=== PATIENT | male | born 1950 | race Caucasian/White ===

== ENCOUNTER 2019-07-18 05:11 | Inpatient (IN) ==
--- NOTE | 2019-05-24 09:49 | Anesthesiology Consultation ---
Date of Service May 24, 2019 Assessment & Plan (1) Encounter for pre-operative examination: Chart Review Chart Review: Acceptable Risk for Surgery (pending preop labs) and Patient NOT seen in Pre Admission Testing History Surgery Operation Date: 07/18/19 09:35 Proposed Procedures p Right Total Hip Arthroplasty - Cody Bolanos MD Height/Weight Height: 6 ft 1 in Weight: 117.934 kg Allergies Allergy/AdvReac Type Severity Reaction Status Date / Time No Known Allergies Allergy Unknown Verified 05/06/19 12:18 Medications Home Medications Medication Instructions Recorded Confirmed Last Taken allopurinol 300 mg PO DAILY 05/06/19 05/24/19 Unknown cholecalciferol (vitamin D3) 1,000 unit PO DAILY 05/06/19 05/24/19 Unknown [Vitamin D3] duloxetine 60 mg PO QAM 05/06/19 05/24/19 Unknown ergocalciferol (vitamin D2) 1,250 mcg PO WK 05/06/19 05/24/19 Unknown [Vitamin D2] hydrochlorothiazide 25 mg PO QAM 05/06/19 05/24/19 Unknown hydroxychloroquine 200 mg PO BID 05/06/19 05/24/19 Unknown lisinopril 15 mg PO QAM 05/06/19 05/24/19 Unknown meloxicam 15 mg PO DAILY 05/06/19 05/24/19 Unknown prednisone 2.5 mg PO DAILY 05/06/19 05/24/19 Unknown tamsulosin 0.4 mg PO HS 05/06/19 05/24/19 Unknown Past Medical History Medical History (Updated 05/24/19 @ 09:51 by Yoana Solitario) BPH (benign prostatic hyperplasia) Chronic back pain Degenerative disc disease History of parvovirus B19 infection ~2009 Hx of pneumothorax ~2004 s/p fall from 2 story home (+ chest tube/no issues since) Hypertension Obesity Osteoarthritis Rheumatoid arthritis chronic prednisone 2.5 mg daily (for the last 8+ years) Dr Holman r/t arthritis, attempted to wean off per patient Spinal stenosis Past Family History Family History Other No family history of adverse response to anesthesia Past Surgical History Surgical History H/O removal of cyst bilateral feet History of back surgery x4 revision back surgeries within r/t post infections History of carpal tunnel release bilateral History of cataract surgery bilateral History of total knee replacement right S/P bunionectomy bilateral S/P epidural steroid injection S/P laminectomy 2014 ([facility]) S/P left inguinal hernia repair S/P right knee arthroscopy Social History Smoking Status: Never smoker tobacco type: smokeless tobacco Hx Alcohol Use: Yes Alcohol type: beer alcohol intake frequency: 3 or more drinks per day Hx Substance Use: No substance use type: does not use Testing Electrocardiogram Date: 05/08/19 SR with occasional PVC's at 88bpm. Minimal voltage criteria for LVH, may be normal variant. Minor NS IVCD. Compared to 01/16/2008, PVC's now present, otherwise no significant change per cardiology. Cervical Spine Date: 05/08/19 Severe disc space narrowing at the C6/C7 and C7-T1 interspaces. Mild to moderate disc space narrowing at C5-C6. Pronounced spondylitic spurring of the lower cervical spine with severe multilevel facet arthrosis. 3 mm anterolisthesis C4 on C5 is unchanged with neutral, flexion and extension. Predental interval is normal. No evidence of instability on this study. No acute fracture or prevertebral soft tissue swelling.
--- NOTE | 2019-07-05 15:03 | History & Physical Report ---
Date of Service July 05, 2019 Assessment & Plan (1) Osteoarthritis of right hip: DIAGNOSIS: Right hip osteoarthritis. PROCEDURE: Right total hip arthroplasty. PLAN: Patient is scheduled to undergo his procedure as an inpatient at the [facility] on July 18, 2019. Risks and complications of the procedure such as infection, bleeding, pain, scarring, nerve and blood vessel damage, weakness, wound problems, stiffness, incomplete relief of symptoms, hardware failure, hardware loosening or a fracture, tendon, or ligament injury, dislocation, leg-length inequality, blood clots, embolism, heart attack, stroke, and were explained to the patient at his visit with Dr. Bolanos on 05/08/19. Informed consent to perform the procedure was obtained to proceed with the surgical intervention. We have obtained preoperative medical clearance from the patient's primary care provider, Dr. Erazo. We will need to obtain an up-to-date preoperative CBC with differential, complete metabolic panel, PT, INR, blood type and screen, urinalysis, urine culture, EKG, hemoglobin A1c, and a nasal culture for MRSA. He states he will obtain this testing at [facility] in [place]. He was also given an order for COVID-19 testing to be done 3 days prior to his surgery, and will need to strictly quarantined until his surgery. Patient states he has a walker at home from his previous knee replacement surgery and will bring with him on the day of surgery. We discussed discharge planning, and patient states he will most likely be discharged home with Home-Health Services. I provided him with material in regard to use of antibiotics after joint replacement surgery. He states that he understands this and has been on antibiotics in the past after his knee replacement. I offered him a handicap placard for his vehicle, but he states he has a permanent one. I instructed him to purchase the hip kit from either [employer] or [employer], he states that he will do so. I provided the patient with material in regard to lectures offered by [facility] in regard to joint replacement surgery. He states he is not sure if he will be able to make to one of those sessions because he lives over an hour [place] half away. I advised the patient that I will prescribe him a narcotic pain medication for postoperative pain control and anti-inflammatory medication after the surgery, and advised him that he will be on Extra Strength Tylenol and aspirin for pain control and DVT prophylaxis respectively. I instructed him to hold his meloxicam and his prednisone for 1 week prior to the procedure. He will be scheduled for his 2- week postoperative followup with myself on July 30. The patient verbalizes understanding of all information provided during today's visit, thanks us for the care he has received, and states if he has questions or concerns that should arise prior to his procedure date, he will contact the clinic accordingly. History of Present Illness Chief Complaint: Right Hip Pain Primary Care Provider: Mary Erazo DO HPI: This 69-year-old male presents to clinic today for his preoperative history and physical. This patient was initially scheduled for this procedure on 05/30/19 but had it cancelled due to COVID-19 pandemic. The patient complains of a 1-2 year history of right-sided hip pain that has become increasingly worse. When I asked where the pain affects him, he points to his groin and buttocks on the right side. Patient has undergone an ultrasound-guided steroid injection without significant relief. The patient states he has seen by Dr. Shea because he thought the pain is originating in his back, but was advised that more than likely the pain was coming from his hip even though he does have significant back issues. The patient would elect to undergo a right total hip arthroplasty at this time due to failed conservative measures. PAST MEDICAL HISTORY: Gout, hypertension, obesity, benign prostatic hypertrophy, depression. PAST SURGICAL HISTORY: Right total knee arthroplasty, lower lumbar spinal fusion, bilateral cataract removal, excision of cystic lesions from bottom of the feet, left inguinal hernia repair. FAMILY HISTORY: Unremarkable. ALLERGIES: Patient has no known drug allergies. CURRENT MEDICATIONS USED: Allopurinol 300 mg oral tablet daily, duloxetine 60 mg oral delayed release capsule daily, hydrochlorothiazide 25 mg oral tablet daily, hydrochloroquine 200 mg oral tablet twice daily, lisinopril 15 mg tablet daily, meloxicam 15 mg tablet daily, multivitamin 1 tab daily, tamsulosin 0.4 mg oral capsule daily, vitamin D3 50,000 international units once a week, and history of vitamin D3 of 1000 international unit capsule daily. SOCIAL HISTORY: Patient denies a history of smoking or illicit drug use. States that he consumes between 10-12 alcoholic beverages per week. Allergies Allergy/AdvReac Type Severity Reaction Status Date / Time No Known Allergies Allergy Unknown Verified 05/06/19 12:18 Home Medications Home Medications Medication Instructions Recorded Confirmed Type allopurinol 300 mg PO DAILY 05/06/19 05/24/19 History cholecalciferol (vitamin D3) 1,000 unit PO DAILY 05/06/19 05/24/19 History [Vitamin D3] duloxetine 60 mg PO QAM 05/06/19 05/24/19 History ergocalciferol (vitamin D2) 1,250 mcg PO WK 05/06/19 05/24/19 History [Vitamin D2] hydrochlorothiazide 25 mg PO QAM 05/06/19 05/24/19 History hydroxychloroquine 200 mg PO BID 05/06/19 05/24/19 History lisinopril 15 mg PO QAM 05/06/19 05/24/19 History meloxicam 15 mg PO DAILY 05/06/19 05/24/19 History prednisone 2.5 mg PO DAILY 05/06/19 05/24/19 History tamsulosin 0.4 mg PO HS 05/06/19 05/24/19 History Past Med/Surg History Medical History BPH (benign prostatic hyperplasia) Chronic back pain Degenerative disc disease History of parvovirus B19 infection ~2009 Hx of pneumothorax ~2004 s/p fall from 2 story home (+ chest tube/no issues since) Hypertension Obesity Osteoarthritis Rheumatoid arthritis chronic prednisone 2.5 mg daily (for the last 8+ years) Dr Holman r/t arthritis, attempted to wean off per patient Spinal stenosis Surgical History H/O removal of cyst bilateral feet History of back surgery x4 revision back surgeries within 2014/2015 r/t post infections History of carpal tunnel release bilateral History of cataract surgery bilateral History of total knee replacement right S/P bunionectomy bilateral S/P epidural steroid injection S/P laminectomy 2014 ([facility]) S/P left inguinal hernia repair S/P right knee arthroscopy Family History Other No family history of adverse response to anesthesia Social History Preferred Language: Estonian Communication Ability: Effective 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 No open skin lesions or discharge. Eyes: Pupils are equal and reactive to light and accommodating. Extraocular movements are intact. Throat: Posterior pharynx clear with absence of edema, erythema, or exudate. Cardiovascular: The patient has regular rate and rhythm with no murmurs or gallops appreciated. Lungs: Auscultation of lung crisostomo reveals clear breath sounds throughout with no edema, rales, or rhonchi. Abdomen is obese, nondistended, nontender with normoactive bowel sounds. Extremities: Right hip, the patient has a positive logroll test and a positive Stinchfield test. Flexion is limited to 110 degrees, external rotation to 40 degrees, internal rotation to 0 degrees. Patient experiences referred groin pain in all these positions. The patient's quad strength is 5/5. His calf is soft and supple, nontender to palpation. He is neurovascularly intact in the right lower extremity. Neurological: Cranial nerves 2-12 are intact with no motor or sensory deficit. Psychological/General: The patient is alert and oriented x3 with proper grooming and hygiene.
--- NOTE | 2019-07-16 10:26 | Communication Note ---
Date of Service: July 16, 2019 Travel assessment/history reviewed - low risk at this time - will be reviewed the morning of surgery. Routine preop covid testing ordered. No resulted at this time.
[2019-07-18] MEDS ORDERED: SCOPOLAMINE 1.5 MG TDSY TD SCH (06:00)
[2019-07-18] MEDS ORDERED: ACETAMINOPHEN 500 MG TAB PO SCH (06:00)
[2019-07-18] MEDS ORDERED: TRANEXAMIC ACID 1,000 MG **IV Intra-op IV SCH (06:00)
[2019-07-18] MEDS ORDERED: dexAMETHasone 4 MG TAB PO SCH (06:00)
[2019-07-18] MEDS ORDERED: TRAMADOL HCL 50 MG TABLET PO SCH (06:00)
[2019-07-18] MEDS ORDERED: LR 60ML/HR IV SCH (06:00)
[2019-07-18] MEDS ORDERED: CeleBREX 200 MG CAP PO SCH (06:00)
[2019-07-18] MEDS ORDERED: METOCLOPRAMIDE HCL 10 MG TABLET PO SCH (06:00)
[2019-07-18] MEDS ORDERED: TRANEXAMIC ACID 1,000 MG **IV Pre-op IV SCH (06:00)
[2019-07-18] MEDS ORDERED: FAMOTIDINE 20 MG TAB PO SCH (06:00)
[2019-07-18] MEDS ORDERED: LR 500ML BOLUS, THEN 15ML/HR IV SCH (06:00)
[2019-07-18] MEDS ORDERED: ROPIVACAINE 0.5% HCL/PF 150 MG, BUPIVACAINE 0.5% MPF 30 ML, EPINEPHrine 0.15 MG, Ketoro... INFIL SCH (06:00)
[2019-07-18] MEDS ORDERED: CEFAZOLIN 3000MG 72.5 ML IV SCH (06:00)
[2019-07-18] MEDS ORDERED: BUPIVACAINE 0.5 % 5 MG/1 ML PF 10ML VIAL ONE (06:28)
[2019-07-18] MEDS ORDERED: ORTHO JOINT ANESTHETIC ONE (06:33)
--- NOTE | 2019-07-18 06:37 | History & Physical Bridge Note ---
Date of Service July 18, 2019 History & Physical Bridge Note I have examined the patient, reviewed the History & Physical and in the interval since the performance of the History & Physical I have noted the following changes of clinical significance: no changes noted
[2019-07-18] MEDS ORDERED: MIDAZOLAM HCL 1 MG/ML 2ML VIAL ONE (06:43)
[2019-07-18] MEDS ORDERED: fentaNYL citrate 100 MCG/2 ML VIAL ONE (06:43)
[2019-07-18] MEDS ORDERED: ePHEDrine sulfate 50 MG/ML AMP IV PRN (07:13)
[2019-07-18] MEDS ORDERED: ATROPINE SULFATE 0.1 MG/ML 10ML SYR IV PRN (07:13)
[2019-07-18] MEDS ORDERED: fentaNYL citrate 100 MCG/2 ML VIAL IV PRN (07:13)
[2019-07-18] MEDS ORDERED: ONDANSETRON INJ 2 MG/ML 2 ML VIAL IV PRN ×2 (07:13→08:56)
[2019-07-18] MEDS ORDERED: PROPOFOL IV EMULSION 10 MG/ML 20 ML VIAL IV ONE (07:29)
[2019-07-18] MEDS ORDERED: LIDOCAINE HCL 2% 2 ML VIAL/AMP(20MG/ML) INFIL ONE (07:29)
[2019-07-18] MEDS ORDERED: PHENYLEPHRINE 100MCG/ML 5ML SYR ONE (07:42)
[2019-07-18] MEDS ORDERED: ePHEDrine sulfate 50 MG/ML SYR ONE (07:42)
[2019-07-18] MEDS ORDERED: ONDANSETRON INJ 2 MG/ML 2 ML VIAL ONE (07:42)
[2019-07-18] MEDS ORDERED: VASOPRESSIN 20 UNIT/ML VIAL ONE (07:57)
--- NOTE | 2019-07-18 08:54 | Operative Report ---
Post Operative Report Pre & Post Diagnosis Operation Date: 07/18/19 07:00 Pre-Op Diagnosis: Right Hip Osteoarthritis Post-Op Diagnosis: Right Hip Osteoarthritis I identified the patient and participated in the time-out.: Yes Procedure Operation Date: 07/18/19 07:00 Actual Procedures p Right Total Hip Arthroplasty(Right) - Cody Bolanos MD Surgeon Cody Bolanos MD Cosmetic Dentist THOMPSON Andre PA-C Estimated Blood Loss 100 Findings Consistent with Post-Op Diagnosis Specimens Femoral head Anesthesia Type Spinal MAC Complications none Disposition Accompanied Patient To Recovery: No Disposition: Recovery Room Indications 69-year-old male with 2-year history of right hip pain refractory to conservative management. X-rays demonstrate end-stage osteoarthritis with complete joint space loss subchondral sclerosis and peripheral osteophyte formation. I had a long discussion with him about the risks and benefits of surgery alternatives to surgery and expected outcomes. After reviewing all these elected to proceed with surgery. All questions were answered. Informed consent was signed Description of Procedure Patient was identified in the preoperative holding area his surgical site was marked. He was given a spinal by anesthesia then brought back to the main operating room where he was placed in the operating table and moved in the lateral decubitus position. Axillary roll was placed. All bony prominences were padded. Perioperative antibiotics and tranexamic acid were administered. He was prepped and draped in the normal sterile fashion. Prior to incision a multidisciplinary timeout was called. All in the room in agreement. We began by making an incision for a posterior approach to the hip. We dissected down through subcutaneous tissues to the level of the fascia. The fascia was incised in line with the incision. Charnley bow was placed. The trochanteric bursa was excised. The piriformis and short external rotators were dissected off the posterior aspect of the hip. A box cut was made in the capsule. The femoral head was dislocated. The femoral neck cut was made at our preoperative template. The acetabulum was then exposed. Contents of the cotyloid fossa were removed with electrocautery. The labrum was sharply excised. We then began reaming at a size 8 mm less than her preoperative template. We reamed him all the way up to a size 58 mm cup. This gave us good bleeding cancellus bone circumferentially. The acetabulum was then irrigated out. The real pinnacle conduit worker herzog cup was then impacted down into position with 45 degrees of lateral opening and 25 degrees of anteversion. A single cancellus bone screw was placed up into the ilium. Excellent fixation was obtained. An Ultrex polyethylene liner for a 36 mm femoral head was then impacted into the shell. The locking mechanism was checked to ensure that it had engaged which it had. Next we turned our attention to the femur. The lateral neck was removed with a box osteotome. Intramedullary guide was used followed by the lateralizing reamer. We then reamed up to a size 7 [place] stem. We broached him all the way up to a size 7. We began trialing with a high offset neck and a +1.5 head. Hip was reduced. His leg lengths were symmetric. He was stable in extension and external rotation. Stable in the sleeper position. At 90 degrees of hip flexion he could be internally rotated 45 degrees before leaving out of the cup. I was very happy with the stability exam. Therefore the hip was dislocated and the femoral trial was removed. The femoral canal was irrigated and dried. The real size 7 high offset [place] femoral stem was opened up. This was impacted down into position. It sat at the same level as the femoral trial. Therefore the 36 mm ceramic femoral head with a +1.5 mm offset was opened up and gently impacted down onto the trunnion. The hip was atraumatically reduced. The wound was then irrigated out with sterile Betadine solution. The periarticular injection cocktail was then placed. The short external rotators piriformis and posterior capsule repaired through drill holes in the greater trochanter using #2 Vicryl. The fascia was run with a looped #1 PDS. The subcutaneous layer was closed with #1 PDS. The dermal layer was closed with 2-0 Vicryl. Zip line was used for the skin followed by a Silverlon dressing. A compressive dressing was then placed. The patient was then rolled supine. Leg lengths were rechecked and were symmetric. An abduction pillow was placed. Sedation was lifted and the patient was transferred to recovery room in stable condition. Postoperative course: Patient will be admitted to the hospital from the recovery room. Patient will be weightbearing as tolerated with posterior hip precautions. Aspirin for DVT prophylaxis. I attest to the content of the Intraoperative Record and any orders documented therein. Any exceptions are noted below.
--- NOTE | 2019-07-18 08:55 | Operative Report ---
Post Operative Report Pre & Post Diagnosis Operation Date: 07/18/19 07:00 Pre-Op Diagnosis: Right Hip Osteoarthritis Post-Op Diagnosis: Right Hip Osteoarthritis I identified the patient and participated in the time-out.: Yes Procedure Operation Date: 07/18/19 07:00 Actual Procedures p Right Total Hip Arthroplasty(Right) - Cody Bolanos MD Surgeon Cody Bolanos MD Rat Trapper THOMPSON Andre PA-C Estimated Blood Loss 100 Findings Consistent with Post-Op Diagnosis Specimens Right femoral head Complications none Disposition Accompanied Patient To Recovery: Yes Disposition: Recovery Room Description of Procedure I was present during the entire case assisting with retraction, wound closure and dressing application. Please see Dr. Bolanos procedure note for specifics of the case. I attest to the content of the Intraoperative Record and any orders documented therein. Any exceptions are noted below.
[2019-07-18] MEDS ORDERED: NALOXONE HCL 0.4 MG/1 ML VIAL/CARP IV PRN (08:56)
[2019-07-18] MEDS ORDERED: ALUMINUM/MAGNESIUM SUSP 30 ML UDC PO PRN (08:56)
[2019-07-18] MEDS ORDERED: OXYCODONE HCL IR 5 MG TAB (IMMEDIATE RELEASE) PO PRN (08:56)
[2019-07-18] MEDS ORDERED: MAGNESIUM HYDROXIDE SUSP 30 ML UDC PO PRN (08:56)
[2019-07-18] MEDS ORDERED: METOCLOPRAMIDE HCL INJ 5 MG/ML 2 ML VIAL IV PRN (08:56)
[2019-07-18] MEDS ORDERED: bisacodyL 10 MG SUPP PR PRN (08:56)
[2019-07-18] MEDS ORDERED: TAMSULOSIN HCL 0.4 MG CAP PO PRN (08:56)
[2019-07-18] MEDS ORDERED: DiphenhydrAMINE HCL 50 MG/ML VIAL IV PRN (08:56)
--- NOTE | 2019-07-18 09:50 | XRay Report ---
XR hip 1V RT w pelvis CLINICAL HISTORY: 69 years-old Male presenting with IN PACU - A/P PELVIS and LATERAL HIP . TECHNIQUE: Single frontal view of the pelvis and lateral view the right hip were obtained. COMPARISON: Plain radiograph of the pelvis from 05/08/2019. FINDINGS: There has been interval total right hip arthroplasty. No malalignment. No periprostatic fracture or l ucency. Incomplete visualization of the pelvis with exclusion of the iliac crests and sacrum. Visuali zed portion of the pelvis intact. Left hip joint congruent. Mild to moderate degenerative change of t he left hip may be present. Soft tissue emphysema noted in the region of the right hip related to rec ent surgery. IMPRESSION: Expected postsurgical findings status post total right hip arthroplasty. ACT 112: Negative or not required by law. Electronically signed by: Cody Love M.D. 07/18/2019 9:49 AM
--- NOTE | 2019-07-18 11:01 | Anesthesiology Progress Note ---
Date of Service July 18, 2019 Anesthesia Post Procedure Vital Signs Vital Signs: Temp Pulse Resp BP Pulse Ox 07/18/19 10:15 70 12 112/72 97 07/18/19 10:00 36.5 C 82 15 117/74 97 07/18/19 09:50 68 12 122/67 97 07/18/19 09:40 82 15 110/72 96 07/18/19 09:30 77 12 118/62 96 07/18/19 09:20 67 12 112/60 98 07/18/19 09:10 72 14 96/56 L 96 07/18/19 09:00 70 12 96/54 L 98 07/18/19 08:53 36.1 C L 77 16 96/51 L 94 07/18/19 05:54 37 C 94 H 20 139/97 95 Pain Intensity Right Hip: Pain Intensity: 6 Transfer of Care Handoff Completed per policy Notes Mental Status: alert / awake / arousable and participated in evaluation Nausea / Vomiting: adequately controlled Pain: adequately controlled Airway Patency, RR, SpO2: stable & adequate BP & HR: stable & adequate Hydration State: stable & adequate Neuraxial Anesthesia: was administered and sensory block is resolving Anesthetic Complications: no major complications apparent and Pt Satisfied with anesthetic care
[2019-07-18] MEDS: hydroCHLOROthiazide 25 MG TAB PO SCH (11:08)
[2019-07-18] MEDS: DULOXETINE HCL 60 MG CAP PO SCH (11:08)
[2019-07-18] MEDS: ASPIRIN 81 MG ECTAB PO SCH ×2 (11:08→21:10)
[2019-07-18] MEDS: SODIUM CHLORIDE 0.9% 1000ML 1,000 ML IV SCH ×2 (11:08→19:50)
[2019-07-18] MEDS: MULTIVITAMIN TAB PO SCH (11:08)
[2019-07-18] MEDS: allopurinoL 300 MG TAB PO SCH (11:09)
[2019-07-18] MEDS: CHOLECALCIFEROL 1,000 UNITS 25 MCG TAB PO SCH (11:09)
[2019-07-18] MEDS: lisinopriL 5 MG TAB PO SCH (11:09)
[2019-07-18] MEDS: KETOROLAC TROMETHAMINE 15 MG/ML VIAL IV SCH ×3 (11:31→23:41)
[2019-07-18] MEDS: ACETAMINOPHEN 500 MG TAB PO SCH ×2 (13:34→21:11)
[2019-07-18] MEDS: CEFAZOLIN 2000MG 2,000 MG/15 ML SYR IV SCH ×2 (14:24→21:11)
[2019-07-18] MEDS ORDERED: TRANEXAMIC ACID / 0.7% NACL 1,000 MG/100 ML BAG IV SCH (15:30)
[2019-07-18] MEDS: CHECK SCOPOLAMINE PATCH PLACEMENT SCH ×2 (15:33→23:41)
[2019-07-18] MEDS ORDERED: TAMSULOSIN HCL 0.4 MG CAP PO SCH (21:00)
[2019-07-18] MEDS ORDERED: SENNA 8.6 MG TAB PO SCH (21:00)
[2019-07-18] MEDS: HYDROXYCHLOROQUINE SULFATE 200 MG TAB PO SCH (21:10)
[2019-07-18] MEDS: DOCUSATE SODIUM 100 MG CAP PO SCH (21:10)
[2019-07-19] MEDS: ACETAMINOPHEN 500 MG TAB PO SCH ×2 (05:35→12:37)
[2019-07-19] MEDS: KETOROLAC TROMETHAMINE 15 MG/ML VIAL IV SCH (05:35)
[2019-07-19] MEDS: SODIUM CHLORIDE 0.9% 1000ML 1,000 ML IV SCH (05:44)
[2019-07-19 07:18] LABS: Basophils # (auto) 0.01 K/uL (0-0.2); Basophils % (auto) 0.2 %; Eosinophils # (auto) 0.01 K/uL (0-0.5); Eosinophils % (auto) 0.2 %; Hematocrit (blood only) 36.5 % (42-52); Hemoglobin 12.6 g/dL (14.0-18.0); Immature Granulocytes # (auto) 0.01 K/uL (0.00-0.02); Immature Granulocytes % (auto) 0.2 %; Lymphocytes # (auto) 0.93 K/uL (1.2-3.4); Lymphocytes % (auto) 14.9 %; Mean Corpuscular Hemoglobin 31.9 pg (25-34); Mean Corpuscular Hgb Conc 34.5 g/dL (32-36); Mean Corpuscular Volume 92.4 fL (80-100); Mean Platelet Volume 9.5 fL (7.4-10.4); Monocytes # (auto) 0.65 K/uL (0.11-0.59); Monocytes % (auto) 10.4 %; Neutrophils # (auto) 4.64 K/uL (1.4-6.5); Neutrophils % (auto) 74.1 %; Platelet Count 163 K/uL (130-400); RDW Coefficient of Variation 11.9 % (11.5-14.5); RDW Standard Deviation 40.6 fL (36.4-46.3); Red Blood Count 3.95 M/uL (4.7-6.1); White Blood Count 6.25 K/uL (4.8-10.8)
[2019-07-19 07:46] LABS: BUN Creatinine Ratio 13.9 (10-20); Calcium 8.9 mg/dl (8.5-10.1); Creatinine Clr Calc Pharmacy 105.5 ml/min; Est GFR (African American) 100.2; Est GFR (Non-African American) 86.4; Potassium 3.9 mmol/L (3.5-5.1)
[2019-07-19] MEDS ORDERED: dexAMETHasone 4 MG TAB PO SCH (08:00)
--- NOTE | 2019-07-19 08:22 | Anesthesiology Progress Note ---
Date of Service July 19, 2019 Anesthesia Post Procedure Vital Signs Vital Signs: Temp Pulse Pulse Resp BP BP Pulse Ox 07/19/19 07:46 36.7 C 77 18 151/75 H 97 07/19/19 02:54 36.5 C 61 16 147/83 H 96 07/18/19 23:39 36.8 C 63 18 154/80 H 97 07/18/19 20:41 36.8 C 80 18 127/75 96 07/18/19 15:59 36.9 C 75 17 124/72 95 07/18/19 13:35 36.9 C 92 H 18 129/78 94 07/18/19 12:51 92 H 18 149/88 H 94 07/18/19 11:45 37.0 C 86 18 124/72 98 07/18/19 11:18 84 18 132/78 98 07/18/19 10:45 37.0 C 84 16 116/67 95 07/18/19 10:15 70 12 112/72 97 07/18/19 10:00 36.5 C 82 15 117/74 97 07/18/19 09:50 68 12 122/67 97 07/18/19 09:40 82 15 110/72 96 07/18/19 09:30 77 12 118/62 96 07/18/19 09:20 67 12 112/60 98 07/18/19 09:10 72 14 96/56 L 96 07/18/19 09:00 70 12 96/54 L 98 07/18/19 08:53 36.1 C L 77 16 96/51 L 94 Pain Intensity Right Hip: Pain Intensity: 3 Notes Mental Status: alert / awake / arousable and participated in evaluation Nausea / Vomiting: adequately controlled Pain: adequately controlled Airway Patency, RR, SpO2: stable & adequate BP & HR: stable & adequate Hydration State: stable & adequate Neuraxial Anesthesia: was administered
[2019-07-19] MEDS: DOCUSATE SODIUM 100 MG CAP PO SCH (10:54)
[2019-07-19] MEDS: ASPIRIN 81 MG ECTAB PO SCH (10:55)
[2019-07-19] MEDS: DULOXETINE HCL 60 MG CAP PO SCH (10:55)
[2019-07-19] MEDS: MULTIVITAMIN TAB PO SCH (10:56)
[2019-07-19] MEDS: HYDROXYCHLOROQUINE SULFATE 200 MG TAB PO SCH (10:56)
[2019-07-19] MEDS: hydroCHLOROthiazide 25 MG TAB PO SCH (10:56)
[2019-07-19] MEDS: lisinopriL 5 MG TAB PO SCH (10:57)
[2019-07-19] MEDS: CHOLECALCIFEROL 1,000 UNITS 25 MCG TAB PO SCH (10:57)
[2019-07-19] MEDS: allopurinoL 300 MG TAB PO SCH (10:58)
--- NOTE | 2019-07-19 11:14 | Orthopedic Progress Note ---
Date of Service July 19, 2019 Assessment & Plan (1) History of total right hip arthroplasty: Total hip precautions PT/OT WBAT with walker assistance Keep dressing in place Ice with EZ wrap DVT prophy with TEDs and Aspirin Pain control with PO meds Discharge after lunch today with in home health services Follow up at [facility] in 2 wks as previously scheduled For questions call Admission and Anticipated Discharge Date Admission Date: July 18, 2019 Subjective This 69 yo M is day s/p Right Total Hip Arthroplasty. Patient states that he is doing very well. He was sitting on bedside chair talking with OT during evaluation. He states that he has been able to ambulate around the halls without pain or difficult with walker assistance. Currently he denies CP, SOB, nausea, vomiting, fever, chills, sweats or lethargy. Review of Systems Review of Systems: All systems reviewed & are unremarkable except as noted in Subjective Physical Exam Physical Exam: Right Hip: Dressing clean, dry and intact. Able to actively perform SLRT and dorsi/plantar flex foot. No pain with light passive internal/external rotation. Neg log roll. Calf soft and supple. No TTP over incision site. NV intact in Rt LE. Periph pulses easily palpable. Cap refill < 2 seconds. Knee ROM 0-90. Results & Data ([facility]) Vital Signs (Past 12 Hours) Vital Signs Temp Pulse Resp BP Pulse Ox 07/19/19 07:46 36.7 C 77 18 151/75 H 97 07/19/19 02:54 36.5 C 61 16 147/83 H 96 07/18/19 23:39 36.8 C 63 18 154/80 H 97 Laboratory Results 07/19/19 07/19/19 07/19/19 Range/Units 06:59 06:59 06:59 WBC 6.25 (4.8-10.8) K/uL RBC 3.95 L (4.7-6.1) M/uL Hgb 12.6 L (14.0-18.0) g/dL Hct 36.5 L (42-52) % MCV 92.4 (80-100) fL MCH 31.9 (25-34) pg MCHC 34.5 (32-36) g/dL RDW Std Deviation 40.6 (36.4-46.3) fL RDW Coeff of [place] 11.9 (11.5-14.5) % Plt Count 163 (130-400) K/uL MPV 9.5 (7.4-10.4) fL Immature Gran % (Auto) 0.2 % Neut % (Auto) 74.1 % Lymph % (Auto) 14.9 % [place] % (Auto) 10.4 % Eos % (Auto) 0.2 % Baso % (Auto) 0.2 % Immature Gran # (Auto) 0.01 (0.00-0.02) K/uL Neut # (Auto) 4.64 (1.4-6.5) K/uL Lymph # (Auto) 0.93 L (1.2-3.4) K/uL [place] # (Auto) 0.65 H (0.11-0.59) K/uL Eos # (Auto) 0.01 (0-0.5) K/uL Baso # (Auto) 0.01 (0-0.2) K/uL Sodium 136 (136-145) mmol/L Potassium 3.9 (3.5-5.1) mmol/L Chloride 102 (98-107) mmol/L Carbon Dioxide 27 (21-32) mmol/L Anion Gap 7.0 (3-11) BUN 12 (7-18) mg/dl Creatinine 0.88 (0.6-1.4) mg/dl Est Cr Clr Drug Dosing 105.5 ml/min Est GFR ( Amer) 100.2 Est GFR (Non-Af Amer) 86.4 BUN/Creatinine Ratio 13.9 (10-20) Glucose 112 H (70-99) mg/dl Calcium 8.9 (8.5-10.1) mg/dl Hepatitis C Ab Screen Neg (Neg)
--- NOTE | 2019-07-19 11:14 | Discharge Summary ---
Date of Service July 19, 2019 Admission HPI Per Admitting Provider HPI: This 69-year-old male presents to clinic today for his preoperative history and physical. This patient was initially scheduled for this procedure on 05/30/19 but had it cancelled due to COVID-19 pandemic. The patient complains of a 1-2 year history of right-sided hip pain that has become increasingly worse. When I asked where the pain affects him, he points to his groin and buttocks on the right side. Patient has undergone an ultrasound-guided steroid injection without significant relief. The patient states he has seen by Dr. Shea because he thought the pain is originating in his back, but was advised t hat more than likely the pain was coming from his hip even though he does have significant back issues. The patient would elect to undergo a right total hip arthroplasty at this time due to failed conservative measures. PAST MEDICAL HISTORY: Gout, hypertension, obesity, benign prostatic hypertrophy, depression. PAST SURGICAL HISTORY: Right total knee arthroplasty, lower lumbar spinal fusion, bilateral cataract removal, excision of cystic lesions from bottom of the feet, left inguinal hernia repair. FAMILY HISTORY: Unremarkable. ALLERGIES: Patient has no known drug allergies. CURRENT MEDICATIONS USED: Allopurinol 300 mg oral tablet daily, duloxetine 60 mg oral delayed release capsule daily, hydrochlorothiazide 25 mg oral tablet daily, hydrochloroquine 200 mg oral tablet twice daily, lisinopril 15 mg tablet daily, meloxicam 15 mg tablet daily, multivitamin 1 tab daily, tamsulosin 0.4 mg oral capsule daily, vitamin D3 50,000 international units once a week, and history of vitamin D3 of 1000 international unit capsule daily. SOCIAL HISTORY: Patient denies a history of smoking or illicit drug use. States that he consumes between 10-12 alcoholic beverages per week. Admission Exam Per Admitting Provider PHYSICAL EXAMINATION: Skin: Patient's skin is normal in appearance. No open skin lesions or discharge. Eyes: Pupils are equal and reactive to light and accommodating. Extraocular movements are intact. Throat: Posterior pharynx clear with absence of edema, erythema, or exudate. Cardiovascular: The patient has regular rate and rhythm with no murmurs or gallops appreciated. Lungs: Auscultation of lung crisostomo reveals clear breath sounds throughout with no edema, rales, or rhonchi. Abdomen is obese, nondistended, nontender with normoactive bowel sounds. Extremities: Right hip, the patient has a positive logroll test and a positive Stinchfield test. Flexion is limited to 110 degrees, external rotation to 40 degrees, internal rotation to 0 degrees. Patient experiences referred groin pain in all these positions. The patient's quad strength is 5/5. His calf is soft and supple, nontender to palpation. He is neurovascularly intact in the right lower extremity. Neurological: Cranial nerves 2-12 are intact with no motor or sensory deficit. Psychological/General: The patient is alert and oriented x3 with proper grooming and hygiene. Principal Diagnosis Right hip osteoarthritis Discharge Exam Right Hip: Dressing clean, dry and intact. Able to actively perform SLRT and dorsi/plantar flex foot. No pain with light passive internal/external rotation. Neg log roll. Calf soft and supple. No TTP over incision site. NV intact in Rt LE. Periph pulses easily palpable. Cap refill < 2 seconds. Knee ROM 0-90. Discharge Data Allergies Allergy/AdvReac Type Severity Reaction Status Date / Time No Known Allergies Allergy Unknown Verified 07/18/19 05:46 Consultations 07/19/19 08:00 Consult Case Management - Discharge Planning Routine Procedures Performed Operation Date: 07/18/19 07:00 Actual Procedures p Right Total Hip Arthroplasty(Right) - Cody Bolanos MD Hospital Course (1) History of total right hip arthroplasty: Patient did very well overnight. Initially he considered discharge to a rehab facility but after doing PT and OT this AM, feels that he will be able to be discharged home with home health services. Total hip precautions PT/OT WBAT with walker assistance Keep dressing in place Ice with EZ wrap DVT prophy with TEDs and Aspirin Pain control with PO meds Discharge after lunch today with in home health services Follow up at [facility] in 2 wks as previously scheduled For questions call Total Time Total Time Spent Total Time Spent (In Minutes): 15 mins Total Time Includes: Examination of the Patient, Discharge Planning and Medication Reconciliation Discharge Plan Discharge Items Patient Disposition: Home - Home Health Services Reason For Visit: Right Hip Osteoarthritis Discharge Diagnosis: Right hip osteoarthritis Activity: As commented below Lifting: None Bathing: Keep incision dry Bathing Comment: May shower tomorrow Sexual Activity: Wait until after follow-up appointment Exercise/Sports: Wait until after follow-up appointment Driving/Machine Use: No driving until cleared by management specialist Weightbearing: Right weightbearing Weightbearing Comment: as tolerated with walker assistance Non-emergency contact: Primary Care Provider Call non-emergency contact if: you have any medication questions, your pain is not controlled, your temperature is above 101.5, your wound has increased drainage and your wound pain has increased Follow-up/Referrals: Mary Erazo DO [Primary Care Provider] - Diet: Regular Addtl Attending Provider Instructions: Post-operative Instructions Dear Patient and Family/Friends, Before you are discharged from the hospital, it is important to know what to expect when you get home after surgery. To that end, we have created this sheet of discharge instructions which covers many commonly asked questions. Make sure you go through this sheet in its entirety with your nurse before you are discharged. Please note that we will go over the specifics of your surgery and recovery when you return for your first post-operative visit. Sincerely, Dr. Bolanos Medications 1. Oxycodone 5 mg: take 1-2 tabs by mouth every 4-6 hours as needed for pain relief. A prescription for 30 tabs of this medication will be sent to your pharmacy. 2. Diclofenac Sodium 75 mg: take 1 tab twice daily for 30 days post operatively for pain and inflammation relief. A prescription for this with 1 refill will be sent to your pharmacy. Do not take Meloxicam while using this medication. 3. Aspirin 81 mg: Take 1 tab twice daily for 30 days post operative for blood clot prevention. Please purchase this medication. 4. Extra Strength Tylenol 500mg: take 2 tabs every 6-8 hours as needed for pain relief. Please purchase. Pain Expect to be in a fair amount of pain after surgery. Remember, our goal is not to eliminate your pain, but to make it tolerable. It is a good idea to stay ahead of your pain by taking the medications you were prescribed once you get home. Typically, the pain starts improving 3-7 days after surgery. You should start weaning off the narcotic pain medication (oxycodone, hydrocodone, hydromorphone, morphine) as soon as your pain improves. Please call our office if your pain is not adequately controlled. Ice Ice your operative site at least 5 times a day for 15-30 minutes at a time. Make sure you have a thin cloth between the ice or cooling unit and your skin to prevent hammer bite. This is especially important if you received a nerve block. Continue icing your operative site for the first 5-7 days after surgery, then as needed. Diet/Nausea/Vomiting Start by drinking clear liquids and eating crackers. If you can tolerate this, then you may resume your normal diet. If you feel nauseated or vomit, take Zofran/ondansetron (if prescribed). Please call our office if you have intractable nausea or vomiting, or, if after hours, you may go to the Emergency Room for help. Constipation Constipation is a common side effect of narcotic pain medication. If you have not had a bowel movement within 2 days after surgery, we recommend purchasing an over the counter laxative such as Milk of Magnesia, Dulcolax, or Miralax from a local pharmacy, and taking it as instructed. Call our clinic if any questions. Nerve block The anesthesia team sometimes places a nerve block to help with post-operative pain control. This results in significant numbness and inability to move the extremity. The nerve block usually wears off in 8-12 hours, but sometimes can last up to 24 hours. Please call our office if you are still unable to move your extremity after 24 hours, unless you received a pain pump to take home. Nerve blocks typically wear off quickly, so start taking pain medication as soon as you start feeling soreness near your surgical site. Weight bearing and Range of Motion. Do not bear any weight through your operative extremity immediately after surgery. If you had upper extremity surgery, do not lift anything with that arm. If you are in a knee brace, keep it locked in place until your follow-up. We will discuss your weight bearing, range of motion, and lifting restrictions in detail at your first post-operative appointment. Continuous Passive Motion (CPM) Machine If you were prescribed a CPM machine, it will start after your first post- operative appointment, at which time we will give you instructions on the range of motion settings and duration of treatment Physical therapy You will be given a prescription for physical therapy or occupational therapy at your first post-operative appointment. Typically, patients start therapy within 1 week of surgery Wound care and showering We will inspect your wound at your first post-operative visit, and may do a dressing change at that time. Most patients will be in a water-proof dressing that is removed 14 days after surgery. It is normal to see some dried blood on the dressing. Do not remove your dressing, paper strips or sutures yourself unless you are given permission. Showering is allowed the day after surgery. Do not scrub or remove any dressings. The wound should not be submerged underwater (i.e. in a bathtub or pool) until 4 weeks after surgery CHARLY stockings If you were given white stockings, these are to be worn at all times except to shower (on both legs) for the first 2 weeks after surgery. Driving You may not drive while taking narcotic pain medication or while in a cast, splint, sling or brace. You, the patient, need to make the final determination about when you are safe to drive, however, the earliest you may consider driving after surgery is below: Hand/Wrist/Elbow Surgery: 3 days Shoulder Surgery: 2 weeks Hip,/Knee/Ankle Surgery: 4 weeks Fracture repair: 6 weeks Return to Work Your return to work depends on what surgery was done and what type of work you do. Please bring any paperwork your employer needs completed to your first post-operative visit. Also, bring a description of your job duties, as this helps us to understand what risks you may face at work. Travel Avoid long distance travel (greater than 1 hour) in airplanes and cars for the first 6 weeks after surgery. If you must travel, you need to have a Doppler ultrasound done before you travel to rule out a blood clot in your legs. Follow-up You should have a follow-up appointment already scheduled 1-2 days after surgery. If not, please contact our office to make this appointment before you leave the hospital. When to call the office It is normal to have swelling and bruising in the limb that was operated on. This will improve with time. It is also normal to have fevers for the first 2 days after surgery. Reasons you should call your doctor include: Uncontrolled pain; Nausea, vomiting, or constipation that does not improve with medication; Fevers over 101.5, chills, sweats; Drainage or bleeding from the wound; Foul odor; Spreading areas of redness; Any other concerns Pending Studies at Discharge: No Stand-Alone Forms: My [facility] Medications and DC Order Prescriptions: New oxycodone 5 mg tablet 5 mg PO Q6H Qty: 30 RF: 0 diclofenac sodium 75 mg tablet,delayed release (DR/EC) 75 mg PO BID 30 Days Qty: 60 RF: 1 Continued tamsulosin 0.4 mg Capsule 0.4 mg PO HS RF: 0 lisinopril 10 mg Tablet 15 mg PO QAM RF: 0 allopurinol 300 mg Tablet 300 mg PO DAILY RF: 0 hydrochlorothiazide 25 mg Tablet 25 mg PO QAM RF: 0 hydroxychloroquine 200 mg Tablet 200 mg PO BID RF: 0 cholecalciferol (vitamin D3) [Vitamin D3] 25 mcg (1,000 unit) Capsule 1,000 unit PO DAILY RF: 0 duloxetine 60 mg Capsule,Delayed Release(Dr/Ec) 60 mg PO QAM RF: 0 Discontinued meloxicam 15 mg Tablet 15 mg PO DAILY RF: 0 Discharge Orders: Discharge Order (Routine); Ordered 07/19/19 Ordered By: Harlan Andre Admission Data Admit Date/Time: 07/18/19 08:57 Attending Provider: Cody Bolanos Admit Provider: Cody Bolanos Primary Care Provider: Mary Erazo
[2019-07-19] MEDS ORDERED: CeleBREX 200 MG CAP PO SCH (21:00)
== END 2019-07-19 13:25 | disposition home health service (06) | DRG 470 ==
LOC: ASU 05:11 → 3E 08:57

== ENCOUNTER 2020-07-02 06:01 | Inpatient (IN) ==
--- NOTE | 2020-06-05 15:41 | PAT Medication Instructions ---
Medication Instructions Date of Service June 05, 2020 Home Medications Medication Instructions Recorded diclofenac sodium 75 mg PO BID 30 Days #60 tab 07/19/19 allopurinol 300 mg PO QAM cholecalciferol (vitamin D3) [Vitamin D3] 1,000 unit PO QAM duloxetine 60 mg PO QAM hydrochlorothiazide 25 mg PO QAM hydroxychloroquine 200 mg PO BID lisinopril 15 mg PO QAM tamsulosin 0.4 mg PO HS diclofenac sodium 75 mg PO BID ASK your surgeon for instructions diclofenac sodium 75 mg PO BID ASK your prescriber and surgeon hydroxychloroquine 200 mg PO BID DO NOT take the morning of surgery cholecalciferol (vitamin D3) [Vitamin D3] 1,000 unit PO QAM hydrochlorothiazide 25 mg PO QAM lisinopril 15 mg PO QAM Take morning of surgery With a small sip of water, OTHERWISE NOTHING TO EAT OR DRINK AFTER MIDNIGHT: allopurinol 300 mg PO QAM duloxetine 60 mg PO QAM Take evening before surgery tamsulosin 0.4 mg PO HS Other Notes If you have any questions please call us at [phone] or [phone] or [phone] or [phone]
--- NOTE | 2020-06-09 15:10 | Anesthesiology Consultation ---
Date of Service June 09, 2020 Assessment & Plan (1) Encounter for pre-operative examination: - COVID screening: Per assessment on 06/09: Travel screen negative, no known COVID-19 positive contacts or current COVID-19 related symptoms. Surgeon arrenrique miller preop COVID testing (scheduled 06/25; [place]). Awaiting results. - S/P Right MIGUELITO (07/18/19): SAB at L2 at [facility] Chart Review Chart Review: Acceptable Risk for Surgery and Patient seen in Pre Admission Sherri ting Teaching & Discussion Pre-Anesthesia Teaching/Discussion Notes: Instructed NPO after midnight before surgery,except medications with 15 cc of water. Medication instructions provided according to the PAT guidelines. History Surgery Operation Date: 07/02/20 08:15 Proposed Procedures p Left Total Knee Arthroplasty - Cody Bolanos MD Height/Weight Height: 6 ft 1 in Weight: 124.4 kg Allergies Allergy/AdvReac Type Severity Reaction Status Date / Time No Known Allergies Allergy Unknown Verified 05/21/20 09:28 Medications Home Medications Medication Instructions Recorded Confirmed Last Taken allopurinol 300 mg PO QAM 05/06/19 05/21/20 07/17/19 10:00 cholecalciferol (vitamin D3) 1,000 unit PO QAM 05/06/19 05/21/20 07/17/19 10:00 [Vitamin D3] duloxetine 60 mg PO QAM 05/06/19 05/21/20 07/17/19 10:00 hydrochlorothiazide 25 mg PO QAM 05/06/19 05/21/20 07/17/19 10:00 hydroxychloroquine 200 mg PO BID 05/06/19 05/21/20 07/17/19 18:00 lisinopril 15 mg PO QAM 05/06/19 05/21/20 07/18/19 03:45 tamsulosin 0.4 mg PO HS 05/06/19 05/21/20 07/17/19 20:00 diclofenac sodium 75 mg PO BID 30 Days #60 tab 07/19/19 05/21/20 Unknown Past Medical History Medical History BPH (benign prostatic hyperplasia) Chronic back pain Degenerative disc disease History of parvovirus B19 infection ~2009 Hx of pneumothorax ~2004 s/p fall from 2 story home (+ chest tube/no issues since) Hypertension Obesity Osteoarthritis Rheumatoid arthritis Spinal stenosis Exercise / Class Metabolic Activity II 4-5 Yardwork/Stairs/Walk up hill Past Family History Family History Other No family history of adverse response to anesthesia Past Surgical History Surgical History H/O removal of cyst R/L feet History of back surgery x4 revision back surgeries within r/t post infections History of carpal tunnel release R/L History of cataract surgery R/L History of right hip replacement Right MIGUELITO (07/18/19): SAB at L2 at [facility] History of total knee replacement right S/P bunionectomy R/L S/P epidural steroid injection S/P foot surgery, right several neuromas removed S/P laminectomy 2014 ([facility] [place]) S/P left inguinal hernia repair S/P right knee arthroscopy S/P trigger finger release right Past Anesthesia History No Hx of Anesthesia Complications and No Family Hx of Anesthesia Complications History of PONV No Hx of PONV and No Hx of Motion Sickness Social History Smoking Status: Never smoker Do You Dip or Chew Tobacco: No (Quit 1993) Hx Alcohol Use: Yes Alcohol type: beer alcohol intake frequency: 3 or more drinks per day (2-3 drinks/day (beer)) Hx Substance Use: No substance use type: does not use Review of Systems Patient denies chest pain, shortness of breath, dyspnea on exertion, fever, chills, cough, wheezing, palpitations. Physical Exam Vital Signs VITALS BP 161/79 P 83 TEMP 98.5 SP02 94%RA RESP 18 PHYSICAL Full cervical extension range of motion. Full TMJ range of motion. TMD 4 finger breaths Mallampati Score 1 Dentition: intact Lungs: clear throughout to auscultation Cardiac: regular rate and rhythm, no murmurs noted Spine: normal Carotid arteries: negative bruit Extremities: no edema Testing Laboratory Results 06/09/20 15:50 06/09/20 15:50 PT 10.0 Seconds (9.0-12.0) 06/09/20 15:50 INR 1.0 (0.9-1.1) 04/13/21 15:50 Hemoglobin A1c 5.2 % (4.5-5.6) 06/09/20 15:50 Urine Color Dark Yellow 06/09/20 Unknown Urine Appearance Clear (Clear) 06/09/20 Unknown Urine pH 5.5 (4.5-7.5) 06/09/20 Unknown Ur Specific [place] 1.019 (1.000-1.030) 06/09/20 Unknown Urine Protein Negative (Negative) 06/09/20 Unknown Urine Glucose (UA) Negative (Negative) 06/09/20 Unknown Urine Ketones Trace (Negative) H 06/09/20 Unknown Urine Nitrite Negative (Negative) 06/09/20 Unknown Ur Leukocyte Esterase Negative (Negative) 06/09/20 Unknown Blood Type A Positive 06/09/20 15:50 Antibody Screen NEGATIVE 06/09/20 15:50 06/09/20 Unknown Urine Culture - Preliminary Urine,Clean Catch No growth - Less than 1,000 colonies/mL, Final report to follow. Low WBC > preop testing to be forwarded to PCP for continuity of care Electrocardiogram Date: 06/09/20 Normal sinus rhythm with sinus arrhythmia at 69 bpm. Cervical Spine Date: 05/08/19 Severe disc space narrowing at the C6/C7 and C7-T1 interspaces. Mild to moderate disc space narrowing at C5-C6. Pronounced spondylitic spurring of the lower cervical spine with severe multilevel facet arthrosis. 3 mm anterolisthesis C4 on C5 is unchanged with neutral, flexion and extension. Predental interval is normal. No evidence of instability on this study. No acute fracture or prevertebral soft tissue swelling.
[2020-06-09 16:10] LABS: Basophils # (auto) 0.01 K/uL (0-0.2); Basophils % (auto) 0.2 %; Eosinophils # (auto) 0.06 K/uL (0-0.5); Eosinophils % (auto) 1.4 %; Hematocrit (blood only) 40.5 % (42-52); Hemoglobin 14.3 g/dL (14.0-18.0); Immature Granulocytes # (auto) 0.01 K/uL (0.00-0.02); Immature Granulocytes % (auto) 0.2 %; Lymphocytes # (auto) 1.24 K/uL (1.2-3.4); Lymphocytes % (auto) 29.5 %; Mean Corpuscular Hemoglobin 31.2 pg (25-34); Mean Corpuscular Hgb Conc 35.3 g/dL (32-36); Mean Corpuscular Volume 88.4 fL (80-100); Mean Platelet Volume 9.4 fL (7.4-10.4); Monocytes # (auto) 0.32 K/uL (0.11-0.59); Monocytes % (auto) 7.6 %; Neutrophils # (auto) 2.57 K/uL (1.4-6.5); Neutrophils % (auto) 61.1 %; Platelet Count 196 K/uL (130-400); RDW Coefficient of Variation 12.9 % (11.5-14.5); RDW Standard Deviation 41.4 fL (36.4-46.3); Red Blood Count 4.58 M/uL (4.7-6.1); White Blood Count 4.21 K/uL (4.8-10.8)
[2020-06-09 16:25] LABS: Appearance Urine Clear (Clear); Bilirubin Urine Negative (Negative); Blood Urine Negative (Negative); Color Urine Dark Yellow; Glucose Urine UA Negative (Negative); Ketones Urine Trace (Negative); Leukocyte Esterase Urine Negative (Negative); Nitrite Urine Negative (Negative); Protein Urine Negative (Negative); Specific Gravity Urine 1.019 (1.000-1.030); Urobilinogen Urine Negative (Negative); pH Urine 5.5 (4.5-7.5)
[2020-06-09 16:54] LABS: Albumin Level 4.1 gm/dl (3.4-5.0); BUN Creatinine Ratio 13.9 (10-20); Calcium 8.9 mg/dl (8.5-10.1); Creatinine Clr Calc Pharmacy 118.5 ml/min; Est GFR (African American) 104.7; Est GFR (Non-African American) 90.3; Potassium 3.9 mmol/L (3.5-5.1)
[2020-06-09 16:57] LABS: Albumin Globulin Ratio 1.2 (0.9-2); Bilirubin,Total 0.5 mg/dl (0.2-1); Globulin 3.3 gm/dl (2.5-4.0); Total Protein 7.4 gm/dl (6.4-8.2)
[2020-06-10 06:24] LABS: Estimated Average Glucose 103 mg/dl; Hemoglobin A1C 5.2 % (4.5-5.6)
--- NOTE | 2020-06-10 06:54 | Electrocardiogram Report ---
Test Reason : Blood Pressure : / mmHG Vent. Rate : 069 BPM Atrial Rate : 069 BPM P-R Int : 186 ms QRS Dur : 108 ms QT Int : 394 ms P-R-T Axes : 076 054 064 degrees QTc Int : 422 ms Normal sinus rhythm with sinus arrhythmia Normal ECG When compared with ECG of 08-MAY-2019 12:39, Premature ventricular complexes are no longer Present Confirmed by Roman Hanson ([id number]) on 06/10/2020 6:54:08 AM Referred By: Cody Bolanos Confirmed By:Roman Hanson
--- NOTE | 2020-06-10 14:29 | History & Physical Report ---
Date of Service June 10, 2020 Assessment & Plan Admission and Anticipated Discharge Date Admission Date: PRE-OP Diagnosis: Left knee osteoarthritis Planned Procedure: Left total knee arthroplasty Plan: Patient is scheduled to undergo this procedure at the [facility] with Dr. Cody Bolanos on July 02, 2020. Risks and complications of the procedure such as: Infection, bleeding, pain, scarring, nerve blood vessel damage, weakness, wound problems, stiffness, incomplete relief of symptoms, hardware failure, hardware loosening, wear, fracture, tendon or ligament injury, blood clots, embolism, heart attack, stroke and were explained to the patient his visit today by Dr. Bolanos. Informed consent form the procedure was obtained. Patient also understands risks of proceeding with surgical intervention during the COVID-19 pandemic. Currently he is asymptomatic and understands he will need to be tested 1 week prior to surgery. Patient is scheduled to meet with anesthesia this afternoon and while there we will obtain a CBC with differential, complete metabolic panel, PT/INR, blood type and screen, urinalysis, urine culture and sensitivity, EKG, hemoglobin A1c and a nasal culture for MRSA. Patient states he has a scheduled visit with his primary care provider Dr. Erazo next week. During today's visit we reviewed the total knee packet. Patient understands he needs to take antibiotics prior to dental procedures and has done so since total hip arthroplasty. I also again provided him with an updated paperwork to obtain a handicap placard for his vehicle. We discussed lectures offered by [facility] in regards to joint replacement surgery via zoom patient states that he is not very tech savvy and will just review the packet provided at his clinic today. Patient states that he has a walker he will bring with him on the day of the procedure. I advised him that he will need to wear a knee immobilizer for the first 48 hours postoperatively. Advised the patient no discharge him from the hospital with prescriptions for an opioid analgesic, and anti-inflammatory and recommended that he use extra Tylenol and baby aspirin for supplemental pain control DVT prophylaxis respectively. Instructions on how to take these medications will be provided in his discharge packet. He plans on doing in-home physical therapy for the first 2 weeks postoperatively and then will we will transition him to outpatient physical therapy after his 2-week postoperative follow-up. Patient is scheduled to see me for the follow-up on July 17 at 1 PM. Patient verbalized understanding of all information provided during today's visit. He thanks for the care he received. If he has questions or concerns prior to the surgery, he will contact clinic. History of Present Illness Chief Complaint: Chief Complaint: Left knee pain Primary Care Provider: Mary Erazo DO History of Present Illness (including history relevant to procedure): This 70-year-old male presents the clinic today for his preoperative history and physical. Patient was initially scheduled for left total knee arthroplasty back in January 2020 however due to issues with his left foot and ankle patient was referred to the foot and ankle specialist in [place] for evaluation and recently underwent surgery in February of this year. He states that his wounds have healed completely and he is has improved function and is ready to proceed with total knee arthroplasty. Review Of Systems: A 14 point review of systems performed is unremarkable except for those things stated in the HPI and past medical history. Past Medical History: Problems: Osteoarthritis of left knee Hallux valgus of right foot Postop check Status post total right knee replacement Dupuytren's contracture of hand Osteoarthritis of right hip Hip osteomyelitis, right Pre-op exam Low back pain Hip pain, right Synovial cyst of popliteal space [Cr], left knee Tear of left hamstring. Hypertension BPH Obesity Procedure History Procedure Procedure Date Comments Hip replacement Knee replacement Surgery 07/2019 - hand Spinal stenosis 2015 Arthroplasty of knee 2007 Allergies and Sensitivities: NKA Social history: Patient states that he consumes between 12 and 14 alcoholic beverages per week. He denies tobacco or illicit drug use Family history: Noncontributory Current Home Meds: (Last Updated 06/09 13:29) DULoxetine (DULoxetine 60 mg oral delayed release capsule) 60 mg PO Daily acetaminophen (acetaminophen 500 mg oral tablet) 1,000 mg PO q6h PRN: as needed for pain allopurinol (allopurinol 100 mg oral tablet) PO 300 mg daily amoxicillin-clavulanate (Augmentin 875 mg-125 mg oral tablet) 1 tab PO q12h with food or milk ascorbic acid (Vitamin C 500 mg oral tablet) 500 mg PO Daily aspirin (aspirin 325 mg oral delayed release tablet) 325 mg PO bid cholecalciferol (Vitamin D3) 1,000 Int_Unit PO Daily diclofenac (diclofenac sodium 75 mg oral delayed release tablet) 75 mg PO bid PRN: as needed for arthritis hydroCHLOROthiazide (hydroCHLOROthiazide 25 mg oral tablet) 25 mg PO Daily lisinopril 15mg daily multivitamin 1 tab PO Daily oxyCODONE (oxyCODONE 5 mg oral tablet) 5 mg PO q4h PRN: pain - moderate tamSULOsin (tamsulosin 0.4 mg oral capsule) 0.4 mg PO Daily Initial Wt: 06/09 124.6 kg 274 lb Allergies Allergy/AdvReac Type Severity Reaction Status Date / Time No Known Allergies Allergy Unknown Verified 05/21/20 09:28 Home Medications Medication Instructions Recorded Confirmed Type allopurinol 300 mg PO QAM 05/06/19 05/21/20 History cholecalciferol (vitamin D3) 1,000 unit PO QAM 05/06/19 05/21/20 History [Vitamin D3] duloxetine 60 mg PO QAM 05/06/19 05/21/20 History hydrochlorothiazide 25 mg PO QAM 05/06/19 05/21/20 History hydroxychloroquine 200 mg PO BID 05/06/19 05/21/20 History lisinopril 15 mg PO QAM 05/06/19 05/21/20 History tamsulosin 0.4 mg PO HS 05/06/19 05/21/20 History diclofenac sodium 75 mg PO BID 30 Days #60 tab 07/19/19 05/21/20 Rx Past Med/Surg History Medical History BPH (benign prostatic hyperplasia) Chronic back pain Degenerative disc disease History of parvovirus B19 infection ~2009 Hx of pneumothorax ~2004 s/p fall from 2 story home (+ chest tube/no issues since) Hypertension Obesity Osteoarthritis Rheumatoid arthritis Spinal stenosis Surgical History H/O removal of cyst R/L feet History of back surgery x4 revision back surgeries within r/t post infections History of carpal tunnel release R/L History of cataract surgery R/L History of right hip replacement Right MIGUELITO (07/18/19): SAB at L2 at [facility] History of total knee replacement right S/P bunionectomy R/L S/P epidural steroid injection S/P foot surgery, right several neuromas removed S/P laminectomy [facility] ([facility] S/P left inguinal hernia repair S/P right knee arthroscopy S/P trigger finger release right Family History Other No family history of adverse response to anesthesia Social History Smoking Status: Never smoker Second Hand Exposure: Yes (hx); Hx Alcohol Use: Yes Alcohol type: beer Hx Substance Use: No Preferred Language: Welsh Communication Ability: Effective Scorekeeper Required: No Beliefs That Will Affect Care: None marital status: Current Living Situation: Spouse Feels Safe at Home: Yes Assistive Devices: Glasses Review of Systems All systems reviewed & are unremarkable except as noted in HPI & below Physical Exam Physical Exam: Physical Exam: (relevant to the procedure, including heart and lung evaluation) General: Alert and oriented x3 with proper grooming and hygiene Eyes: Pupils are equal and reactive to light with accommodation. Extract movements are intact Throat: Deferred due to COVID-19 precautions Cardiac: Regular rate and rhythm no murmurs or gallops appreciated Lungs: Clear to auscultation throughout no wheezing, rales or rhonchi Abdomen: Obese nondistended, nontender with normal active bowel sounds Extremities: left knee range of motion is from 5 degrees up to 105 degrees. Tender to palpation along the medial joint line. He has 2+ effusion. Skin is intact. Neurovascular intact. Neuro: Cranial nerves II through XII are intact no motor or sensory deficit Skin: Normal in appearance with no open skin areas or discharge Results & Data ([facility]) Laboratory Results Lab Results 06/09/20 06/09/20 06/09/20 Range/Units 15:50 15:50 15:50 WBC 4.21 L (4.8-10.8) K/uL RBC 4.58 L (4.7-6.1) M/uL Hgb 14.3 (14.0-18.0) g/dL Hct 40.5 L (42-52) % MCV 88.4 (80-100) fL MCH 31.2 (25-34) pg MCHC 35.3 (32-36) g/dL RDW Std Deviation 41.4 (36.4-46.3) fL RDW Coeff of [place] 12.9 (11.5-14.5) % Plt Count 196 (130-400) K/uL MPV 9.4 (7.4-10.4) fL Immature Gran % (Auto) 0.2 % Neut % (Auto) 61.1 % Lymph % (Auto) 29.5 % [place] % (Auto) 7.6 % Eos % (Auto) 1.4 % Baso % (Auto) 0.2 % Neut # (Auto) 2.57 (1.4-6.5) K/uL Lymph # (Auto) 1.24 (1.2-3.4) K/uL [place] # (Auto) 0.32 (0.11-0.59) K/uL Eos # (Auto) 0.06 (0-0.5) K/uL Baso # (Auto) 0.01 (0-0.2) K/uL Immature Gran # (Auto) 0.01 (0.00-0.02) K/uL PT 10.0 (9.0-12.0) Seconds INR 1.0 (0.9-1.1) Sodium 136 (136-145) mmol/L Potassium 3.9 (3.5-5.1) mmol/L Chloride 102 (98-107) mmol/L Carbon Dioxide 31 (21-32) mmol/L Anion Gap 3.0 (3-11) BUN 11 (7-18) mg/dl Creatinine 0.79 (0.6-1.4) mg/dl Est Cr Clr Drug Dosing 118.5 ml/min Est GFR ( Amer) 104.7 Est GFR (Non-Af Amer) 90.3 BUN/Creatinine Ratio 13.9 (10-20) Glucose 82 (70-99) mg/dl Estimat Average Glucose mg/dl Hemoglobin A1c (4.5-5.6) % Calcium 8.9 (8.5-10.1) mg/dl Total Bilirubin 0.5 (0.2-1) mg/dl AST 20 (15-37) U/L ALT 39 (12-78) U/L Alkaline Phosphatase 99 (45-117) U/L Total Protein 7.4 (6.4-8.2) gm/dl Albumin 4.1 (3.4-5.0) gm/dl Globulin 3.3 (2.5-4.0) gm/dl Albumin/Globulin Ratio 1.2 (0.9-2) Urine Color Urine Appearance (Clear) Urine pH (4.5-7.5) Ur Specific [place] (1.000-1.030) Urine Protein (Negative) Urine Glucose (UA) (Negative) Urine Ketones (Negative) Urine Blood (Negative) Urine Nitrite (Negative) Urine Bilirubin (Negative) Urine Urobilinogen (Negative) Ur Leukocyte Esterase (Negative) Nasal Screen MRSA (PCR) (Negative) Blood Type Antibody Screen 06/09/20 06/09/20 06/09/20 Range/Units 15:50 15:50 15:51 WBC (4.8-10.8) K/uL RBC (4.7-6.1) M/uL Hgb (14.0-18.0) g/dL Hct (42-52) % MCV (80-100) fL MCH (25-34) pg MCHC (32-36) g/dL RDW Std Deviation (36.4-46.3) fL RDW Coeff of [place] (11.5-14.5) % Plt Count (130-400) K/uL MPV (7.4-10.4) fL Immature Gran % (Auto) % Neut % (Auto) % Lymph % (Auto) % [place] % (Auto) % Eos % (Auto) % Baso % (Auto) % Neut # (Auto) (1.4-6.5) K/uL Lymph # (Auto) (1.2-3.4) K/uL [place] # (Auto) (0.11-0.59) K/uL Eos # (Auto) (0-0.5) K/uL Baso # (Auto) (0-0.2) K/uL Immature Gran # (Auto) (0.00-0.02) K/uL PT (9.0-12.0) Seconds INR (0.9-1.1) Sodium (136-145) mmol/L Potassium (3.5-5.1) mmol/L Chloride (98-107) mmol/L Carbon Dioxide (21-32) mmol/L Anion Gap (3-11) BUN (7-18) mg/dl Creatinine (0.6-1.4) mg/dl Est Cr Clr Drug Dosing ml/min Est GFR ( Amer) Est GFR (Non-Af Amer) BUN/Creatinine Ratio (10-20) Glucose (70-99) mg/dl Estimat Average Glucose 103 mg/dl Hemoglobin A1c 5.2 (4.5-5.6) % Calcium (8.5-10.1) mg/dl Total Bilirubin (0.2-1) mg/dl AST (15-37) U/L ALT (12-78) U/L Alkaline Phosphatase (45-117) U/L Total Protein (6.4-8.2) gm/dl Albumin (3.4-5.0) gm/dl Globulin (2.5-4.0) gm/dl Albumin/Globulin Ratio (0.9-2) Urine Color Urine Appearance (Clear) Urine pH (4.5-7.5) Ur Specific [place] (1.000-1.030) Urine Protein (Negative) Urine Glucose (UA) (Negative) Urine Ketones (Negative) Urine Blood (Negative) Urine Nitrite (Negative) Urine Bilirubin (Negative) Urine Urobilinogen (Negative) Ur Leukocyte Esterase (Negative) Nasal Screen MRSA (PCR) Negative (Negative) Blood Type A Positive Antibody Screen NEGATIVE 06/09/20 Range/Units Unknown WBC (4.8-10.8) K/uL RBC (4.7-6.1) M/uL Hgb (14.0-18.0) g/dL Hct (42-52) % MCV (80-100) fL MCH (25-34) pg MCHC (32-36) g/dL RDW Std Deviation (36.4-46.3) fL RDW Coeff of [place] (11.5-14.5) % Plt Count (130-400) K/uL MPV (7.4-10.4) fL Immature Gran % (Auto) % Neut % (Auto) % Lymph % (Auto) % [place] % (Auto) % Eos % (Auto) % Baso % (Auto) % Neut # (Auto) (1.4-6.5) K/uL Lymph # (Auto) (1.2-3.4) K/uL [place] # (Auto) (0.11-0.59) K/uL Eos # (Auto) (0-0.5) K/uL Baso # (Auto) (0-0.2) K/uL Immature Gran # (Auto) (0.00-0.02) K/uL PT (9.0-12.0) Seconds INR (0.9-1.1) Sodium (136-145) mmol/L Potassium (3.5-5.1) mmol/L Chloride (98-107) mmol/L Carbon Dioxide (21-32) mmol/L Anion Gap (3-11) BUN (7-18) mg/dl Creatinine (0.6-1.4) mg/dl Est Cr Clr Drug Dosing ml/min Est GFR ( Amer) Est GFR (Non-Af Amer) BUN/Creatinine Ratio (10-20) Glucose (70-99) mg/dl Estimat Average Glucose mg/dl Hemoglobin A1c (4.5-5.6) % Calcium (8.5-10.1) mg/dl Total Bilirubin (0.2-1) mg/dl AST (15-37) U/L ALT (12-78) U/L Alkaline Phosphatase (45-117) U/L Total Protein (6.4-8.2) gm/dl Albumin (3.4-5.0) gm/dl Globulin (2.5-4.0) gm/dl Albumin/Globulin Ratio (0.9-2) Urine Color Dark Yellow Urine Appearance Clear (Clear) Urine pH 5.5 (4.5-7.5) Ur Specific [place] 1.019 (1.000-1.030) Urine Protein Negative (Negative) Urine Glucose (UA) Negative (Negative) Urine Ketones Trace H (Negative) Urine Blood Negative (Negative) Urine Nitrite Negative (Negative) Urine Bilirubin Negative (Negative) Urine Urobilinogen Negative (Negative) Ur Leukocyte Esterase Negative (Negative) Nasal Screen MRSA (PCR) (Negative) Blood Type Antibody Screen Diagnostic Findings Studies (relevant to the procedure): x-rays show severe osteoarthritis of the left knee.
[~2020-07-02 06:01] MED LIST: ACETAMINOPHEN 500 MG TAB PO SCH; CeleBREX 200 MG CAP PO SCH; LR 500ML BOLUS, THEN 15ML/HR IV SCH; LR 60ML/HR IV SCH; METOCLOPRAMIDE HCL 10 MG TABLET PO SCH; ROPIVACAINE 0.5% HCL/PF 150 MG, BUPIVACAINE 0.75% MPF 20 ML, EPINEPHrine 0.15 MG, Ketor... INFIL SCH; Scopolamine 1 MG TDSY TD SCH; TRANEXAMIC ACID 1,000 MG **IV Intra-op IV SCH; TRANEXAMIC ACID 1,000 MG **IV Pre-op IV SCH; dexAMETHasone 4 MG TAB PO SCH; traMADol HCL 50 MG TABLET PO SCH
[2020-07-02] MEDS ORDERED: BUPIVACAINE 0.5 % 5 MG/1 ML PF 10ML VIAL ONE (06:29)
[2020-07-02] MEDS ORDERED: EPINEPHrine INJ 1 MG/ML AMP ONE (06:29)
[2020-07-02] MEDS ORDERED: BUPIVACAINE 0.25% 30 ML VIAL ONE (06:29)
[2020-07-02] MEDS ORDERED: traMADol HCL 50 MG TABLET ONE (07:13)
[2020-07-02] MEDS ORDERED: PROPOFOL IV EMULSION 10 MG/ML 20 ML VIAL IV ONE ×3 (07:24→09:11)
[2020-07-02] MEDS ORDERED: fentaNYL citrate 100 MCG/2 ML VIAL ONE (07:24)
[2020-07-02] MEDS ORDERED: MIDAZOLAM HCL 1 MG/ML 2ML VIAL ONE ×2 (07:24→08:41)
[2020-07-02] MEDS ORDERED: KETAMINE 50 MG/5 ML SYRINGE ONE (07:24)
[2020-07-02] MEDS ORDERED: LIDOCAINE HCL 2% 2 ML VIAL/AMP(20MG/ML) INFIL ONE (07:24)
[2020-07-02] MEDS ORDERED: ePHEDrine sulfate 50 MG/ML AMP IV PRN (07:39)
[2020-07-02] MEDS ORDERED: ONDANSETRON INJ 2 MG/ML 2 ML VIAL IV PRN ×2 (07:39→10:51)
[2020-07-02] MEDS ORDERED: HYDROmorphone INJ 2 MG/ML SYR/VIAL IV PRN (07:39)
[2020-07-02] MEDS ORDERED: ATROPINE SULFATE 0.1 MG/ML 10ML SYR IV PRN (07:39)
[2020-07-02] MEDS ORDERED: fentaNYL citrate 100 MCG/2 ML VIAL IV PRN (07:39)
--- NOTE | 2020-07-02 07:40 | History & Physical Bridge Note ---
Date of Service July 02, 2020 History & Physical Bridge Note I have examined the patient, reviewed the History & Physical and in the interval since the performance of the History & Physical I have noted the following changes of clinical significance: no changes noted
[2020-07-02] MEDS ORDERED: ORTHO JOINT ANESTHETIC ONE (08:15)
[2020-07-02] MEDS ORDERED: ONDANSETRON INJ 2 MG/ML 2 ML VIAL ONE (09:11)
[2020-07-02] MEDS ORDERED: HYDROmorphone INJ 0.5 MG/0.5 ML SYR IV PRN (10:51)
[2020-07-02] MEDS ORDERED: ALUMINUM/MAGNESIUM SUSP 30 ML UDC PO PRN (10:51)
[2020-07-02] MEDS ORDERED: NALOXONE HCL 0.4 MG/1 ML VIAL/CARP IV PRN (10:51)
[2020-07-02] MEDS ORDERED: MAGNESIUM HYDROXIDE SUSP 30 ML UDC PO PRN (10:51)
[2020-07-02] MEDS ORDERED: TAMSULOSIN HCL 0.4 MG CAP PO PRN (10:51)
[2020-07-02] MEDS ORDERED: METOCLOPRAMIDE HCL INJ 5 MG/ML 2 ML VIAL IV PRN (10:51)
[2020-07-02] MEDS ORDERED: diphenhydrAMINE 50 MG/ML VIAL IV PRN (10:51)
[2020-07-02] MEDS ORDERED: bisacodyL 10 MG SUPP PR PRN (10:51)
[2020-07-02] MEDS ORDERED: oxyCODONE HCL IR 5 MG TAB (IMMEDIATE RELEASE) PO PRN (10:51)
--- NOTE | 2020-07-02 10:51 | Operative Report ---
Post Operative Report Pre & Post Diagnosis Operation Date: 07/02/20 08:15 Pre-Op Diagnosis: Left Knee Arthritis Post-Op Diagnosis: Left Knee Arthritis I identified the patient and participated in the time-out.: Yes Procedure Operation Date: 07/02/20 08:15 Actual Procedures p Left Total Knee Arthroplasty(Left) - Cody Bolanos MD Surgeon Cody Bolanos MD Dietetic Assistant THOMPSON Andre PA-C Estimated Blood Loss 200 Findings Consistent with Post-Op Diagnosis Specimens Bone and soft tissue contents, left knee Anesthesia Type Spinal MAC Complications none Disposition Accompanied Patient To Recovery: No Disposition: Recovery Room Indications 70-year-old male with left knee pain refractory to conservative management. X- rays demonstrate [id number] arthritis with some bony erosion from the proximal medial tibia posteriorly. I had a long discussion with him about the risks and benefits of surgery, alternatives to surgery, and expected outcomes. After reviewing all these he elected to proceed with surgery. All questions were answered. Informed consent was signed. Description of Procedure Patient was identified in the preoperative holding area where the surgical site, left knee, was marked. Patient was brought back to the operating room, placed on the operating room table, and IV sedation was administered. All bony prominences were padded. Perioperative antibiotics and tranexamic acid were administered. Exam under anesthesia was performed. This demonstrated the patient have a 10 degree flexion contracture. He flexed up to 125 degrees. Mild pseudolaxity with valgus stress at 30 degrees. The surgical site was prepped and draped in the normal sterile fashion. Prior to incision a multidisciplinary timeout was called. All in the room were in agreement. We began by exsanguinating the limb with an Esmarch bandage. Tourniquet was inflated to 275 mmHg. A 16 cm long incision was made over the anterior aspect of the knee. I dissected through the subcutaneous tissues to the level of the fascia. Full-thickness flaps are raised above the fascia. A median parapatellar arthrotomy was made. Half the fat pad was excised. A medial release was performed with Bovie electrocautery on the proximal tibia. Synovitis in the suprapatellar pouch was removed. Large osteophytes off the superior and inferior aspects of the patella were removed. The patella was then everted and held with 2 towel clips. The thickness of the patella was measured at 30 mm. Patellar resection was performed. Caliper showed the patella thickness now to be 20 mm. A size 41 trial was placed and had a great fit. The 3 drill holes were placed then the trial button was placed. The patellar thickness was now 30 mm which I was very happy with. The patellar trial was then removed, the patella was everted and the knee was flexed up. Osteophytes were removed from the femoral condyles and intercondylar notch. The ACL and PCL were excised. Intramedullary drill guide was drilled into the femur. Distal femoral cutting guide was placed set at 5 degrees of valgus to resect 10 mm off the distal femur. Distal femoral resection was made without difficulty. The tibia was then exposed. The lateral meniscus was sharply excised. The tibial cutting jig was positioned to resect 10 mm off the less involved compartment. The jig was then pinned in position and the tibial cut was made. We then brought the knee into full extension. Lamina spreaders were placed. The medial meniscus was excised. The extension block was then placed for 7 mm thickness poly. This gave us full extension and excellent stability to varus and valgus. Next the knee was flexed up and the femoral sizing guide was placed. The patient sized to a size 8 femur. The 3 degree external rotation jig was used to create 2 holes in the distal femur. The jig was removed and the holes were compared to Whitesides axis and the epicondylar axis. We were happy with the rotation, and therefore placed a size three 4-in-1 cutting jig and pinned this into position. Our 4 cuts were made. The cutting jig was removed. The flexion block was then placed with the knee held at 90 degrees. There was excellent stability to varus and valgus at 90 degrees with no gapping medially or laterally. Next the box cutting jig was placed on the distal femur. The box cut was made and the femoral trial was impacted into position. The tibia was sized to a 9 for a fixed bearing component. The tibial tray was positioned in external rotation on the cut tibial surface and the knee was brought through a full range of motion. We then pinned the tibial tray into position and used the intramedullary drill followed by the keel punch. The trial polyethylene was then placed and the knee was brought through a full range of motion. I was very happy with the stability through a full range of motion, and the patellar tracking was excellent. Next the trial components were removed. I then injected the posterior capsule and periosteum with the periarticular injection cocktail. The bone cuts were then irrigated and dried while the cement was mixed on the back table. The femoral component was cemented on first. Excess cement was removed. A lap sponge was placed over the femoral component for protection, then the tibia was subluxated anteriorly. The tibial component was then cemented in place. Again excess cement was removed. The trial polyethylene was then placed and the knee was brought into full extension and held there until the cement cured. The patella was cemented and clamped. Dilute Betadine solution was then allowed to irrigate the knee while the cement cured. Once the cement was fully cured, the tourniquet was let down and meticulous hemostasis was ensured. The wound was irrigated out with copious amounts normal saline. The knee was brought through a full range of motion and we are very happy with the patella tracking and the stability. Therefore, the trial tibial polyethylene was removed and the real size 8 polyethylene to match the femur, 7 mm thickness was placed. We then began to close. Interrupted 0 Vicryl suture was used to repair the patellar retinaculum in [id number] fashion. The quadriceps and patellar tendons were run with #1 Ethibond. The deep dermal layer was closed with interrupted 2-0 Vicryl. Zipline was used for the skin. A compressive dressing was placed. Patient's sedation was lifted and was transferred to recovery room in stable condition. Summary of implants: Depuy attune posterior Stabilized Cemented Femur, size 8 left Tibial Tray cemented, size 9 Tibial polyethylene insert, 7 mm thickness, size 8 to match the femur 41 anatomic patella 2 batches of simplex bone cement Postoperative course: Patient will be admitted to the floor for pain control and monitoring. Weightbearing as tolerated with no knee range of motion for 48 hours. Aspirin for DVT prophylaxis. I attest to the content of the Intraoperative Record and any orders documented therein. Any exceptions are noted below.
--- NOTE | 2020-07-02 10:51 | Operative Report ---
Post Operative Report Pre & Post Diagnosis Operation Date: 07/02/20 08:15 Pre-Op Diagnosis: Left Knee Arthritis Post-Op Diagnosis: Left Knee Arthritis I identified the patient and participated in the time-out.: Yes Procedure Operation Date: 07/02/20 08:15 Actual Procedures p Left Total Knee Arthroplasty(Left) - Cody Bolanos MD Surgeon Cody Bolanos MD Tobacco Sorter Joanne Andre PABhavik Estimated Blood Loss 200 Findings Consistent with Post-Op Diagnosis Specimens none Complications none Disposition Accompanied Patient To Recovery: No Disposition: Recovery Room Description of Procedure I was present during the entire case assisting with positioning, prepping, draping, retraction, wound closure and dressing application. No fellow present. Please see Dr. Bolanos procedure note for specifics of the case. I attest to the content of the Intraoperative Record and any orders documented therein. Any exceptions are noted below.
--- NOTE | 2020-07-02 11:14 | Anesthesiology Progress Note ---
Date of Service July 02, 2020 Anesthesia Post Procedure Vital Signs Vital Signs: Temp Pulse Pulse Resp BP BP Pulse Ox 07/02/20 11:10 83 12 135/75 94 07/02/20 11:00 85 12 116/77 98 07/02/20 10:52 36.3 C L 86 16 142/74 H 97 07/02/20 06:48 36.7 C 83 18 161/88 H 95 Pain Intensity Neck: Pain Intensity: 3 Transfer of Care Handoff Completed per policy Notes Mental Status: alert / awake / arousable and participated in evaluation Patient Amnestic to Procedure: Yes Nausea / Vomiting: adequately controlled Pain: adequately controlled Airway Patency, RR, SpO2: stable & adequate BP & HR: stable & adequate Hydration State: stable & adequate Anesthetic Complications: no major complications apparent and Pt Satisfied with anesthetic care
--- NOTE | 2020-07-02 11:58 | XRay Report ---
XR knee LT 1 or 2V routine HISTORY: 70 years-old Male Surgical Post Op left knee total joint arthroplasty COMPARISON: Left knee radiographs 06/09/2020 TECHNIQUE: 2 views of the left knee FINDINGS: Left knee total joint arthroplasty and patella resurfacing. Expected postsurgical soft tissue swellin g and deep tissue air. No acute fracture or unexpected opaque foreign body. Arterial calcifications. IMPRESSION: Left knee total joint arthroplasty with expected postoperative changes. ACT 112: Negative or not required by law. The above report was generated using voice recognition software. It may contain grammatical, syntax o r spelling errors. Electronically signed by: Galileo Munguia M.D. 07/02/2020 11:56 AM
[2020-07-02] MEDS: SODIUM CHLORIDE 0.9% 1000ML 1,000 ML IV SCH ×2 (14:13→23:24)
[2020-07-02] MEDS: ACETAMINOPHEN 500 MG TAB PO SCH ×2 (16:23→23:03)
[2020-07-02] MEDS: ceFAZolin 2000MG 2,000 MG/15 ML SYR IV SCH ×2 (16:31→23:03)
[2020-07-02] MEDS: Scopolamine CHECK PATCH PLACEMENT SCH ×2 (16:59→23:26)
[2020-07-02] MEDS ORDERED: TRANEXAMIC ACID / 0.7% NACL 1,000 MG/100 ML BAG IV ONE (18:00)
[2020-07-02] MEDS: KETOROLAC TROMETHAMINE 15 MG/ML VIAL IV SCH ×2 (18:22→23:03)
[2020-07-02] MEDS: HYDROXYCHLOROQUINE SULFATE 200 MG TAB PO SCH (20:12)
[2020-07-02] MEDS: DOCUSATE SODIUM 100 MG CAP PO SCH (20:12)
[2020-07-02] MEDS ORDERED: CeleBREX 200 MG CAP PO SCH (21:00)
[2020-07-02] MEDS ORDERED: SENNA 8.6 MG TAB PO SCH (21:00)
[2020-07-02] MEDS ORDERED: TAMSULOSIN HCL 0.4 MG CAP PO SCH (21:00)
[2020-07-03] MEDS: KETOROLAC TROMETHAMINE 15 MG/ML VIAL IV SCH ×2 (05:33→10:57)
[2020-07-03 06:06] LABS: Hematocrit (blood only) 31.6 % (42-52); Hemoglobin 11.2 g/dL (14.0-18.0); Mean Corpuscular Hgb Conc 35.4 g/dL (32-36); Mean Corpuscular Volume 87.5 fL (80-100); Mean Platelet Volume 9.5 fL (7.4-10.4); Platelet Count 183 K/uL (130-400); RDW Coefficient of Variation 12.6 % (11.5-14.5); RDW Standard Deviation 40.6 fL (36.4-46.3); Red Blood Count 3.61 M/uL (4.7-6.1); White Blood Count 8.08 K/uL (4.8-10.8)
[2020-07-03 06:32] LABS: BUN Creatinine Ratio 16.8 (10-20); Calcium 8.4 mg/dl (8.5-10.1); Est GFR (African American) 107.4; Est GFR (Non-African American) 92.7; Potassium 3.8 mmol/L (3.5-5.1)
[2020-07-03] MEDS ORDERED: dexAMETHasone 4 MG TAB PO SCH (08:00)
[2020-07-03] MEDS: Scopolamine CHECK PATCH PLACEMENT SCH (08:35)
[2020-07-03] MEDS: ACETAMINOPHEN 500 MG TAB PO SCH (08:35)
[2020-07-03] MEDS: HYDROXYCHLOROQUINE SULFATE 200 MG TAB PO SCH (08:36)
[2020-07-03] MEDS: DOCUSATE SODIUM 100 MG CAP PO SCH (08:36)
[2020-07-03] MEDS ORDERED: ASPIRIN 81 MG ECTAB PO SCH (09:00)
[2020-07-03] MEDS ORDERED: MULTIVITAMIN TAB PO SCH (09:00)
[2020-07-03] MEDS ORDERED: lisinopril 5 MG TAB PO SCH (09:00)
[2020-07-03] MEDS ORDERED: DULoxetine HCL 60 MG CAP PO SCH (09:00)
[2020-07-03] MEDS ORDERED: CHOLECALCIFEROL 1,000 UNITS 25 MCG TAB PO SCH (09:00)
[2020-07-03] MEDS ORDERED: allopurinoL 300 MG TAB PO SCH (09:00)
[2020-07-03] MEDS ORDERED: hydroCHLOROthiazide 25 MG TAB PO SCH (09:00)
--- NOTE | 2020-07-03 09:46 | Orthopedic Progress Note ---
Date of Service July 03, 2020 Assessment & Plan (1) S/P total knee arthroplasty: Weightbearing as tolerated on left lower extremity with walker assistance and immobilizer use for the first 48 hours postoperatively PT/OT DVT prophylaxis with CHARLY stockings and aspirin Pain control with p.o. medications Keep dressing in place until 2-week follow-up Ice with eZY WRAP Plan on discharge home today with in-home physical therapy for the first 2 weeks postoperatively Follow-up at [facility] orthopedics as previously instructed With questions contact our clinic at Admission and Anticipated Discharge Date Admission Date: July 02, 2020 Subjective This 70-year-old male is day 1 status post left total knee arthroplasty. He is doing very well. He was ambulating around his room with his knee immobilized with the aid of a walker when I came in to examine him this morning. States that he has minimal pain is well controlled with pain medication he was given. He states that he has talked with window caser and has [facility] home health set up to come in and do his therapy for the first 2 weeks postoperatively. Currently he denies any chest pain, shortness of breath, fever, chills, sweats, lethargy, numbness or tingling in the left lower extremity, nausea, vomiting or diarrhea. Review of Systems Review of Systems: All systems reviewed & are unremarkable except as noted in Subjective Physical Exam Physical Exam: Left knee: Immobilizer and outer dressings were moved. Silverlon's were clean dry and intact with no drainage. Patient does have some mild edema over the anterior surface of the, but no erythema, ecchymosis, warmth or palpable deformity. He is able to extend 0 degrees and flex to 85 degrees actively without difficulty. He is able to perform a straight leg raise test. He is able to actively dorsi and plantarflex his foot. Quad strength is 3 out of 5. His calf is soft and supple nontender to palpation. His peripheral pulses are 2+. His capillary refill is less than 2 seconds. Results & Data ([facility]) Vital Signs (Past 12 Hours) Vital Signs Temp Pulse Resp BP BP Pulse Ox 07/03/20 07:45 36.8 C 69 16 162/83 H 98 07/03/20 03:43 36.5 C 66 16 157/81 H 97 07/02/20 23:05 36.6 C 66 16 152/76 H 97 Laboratory Results 07/03/20 07/03/20 07/03/20 Range/Units 05:44 05:44 05:44 WBC 8.08 (4.8-10.8) K/uL RBC 3.61 L (4.7-6.1) M/uL Hgb 11.2 L (14.0-18.0) g/dL Hct 31.6 L (42-52) % MCV 87.5 (80-100) fL MCH 31.0 (25-34) pg MCHC 35.4 (32-36) g/dL RDW Std Deviation 40.6 (36.4-46.3) fL RDW Coeff of Codi 12.6 (11.5-14.5) % Plt Count 183 (130-400) K/uL MPV 9.5 (7.4-10.4) fL Sodium 135 L (136-145) mmol/L Potassium 3.8 (3.5-5.1) mmol/L Chloride 104 (98-107) mmol/L Carbon Dioxide 27 (21-32) mmol/L Anion Gap 4.0 (3-11) BUN 12 (7-18) mg/dl Creatinine 0.73 (0.6-1.4) mg/dl Est Cr Clr Drug Dosing 125.0 ml/min Est GFR ( Amer) 107.4 Est GFR (Non-Af Amer) 92.7 BUN/Creatinine Ratio 16.8 (10-20) Glucose 127 H (70-99) mg/dl Calcium 8.4 L (8.5-10.1) mg/dl Hepatitis C Ab Screen Neg (Neg)
--- NOTE | 2020-07-03 09:51 | Discharge Summary ---
Date of Service July 03, 2020 Admission HPI Per Admitting Provider History of Present Illness (including history relevant to procedure): This 70-year-old male presents the clinic today for his preoperative history and physical. Patient was initially scheduled for left total knee arthroplasty back in January 2020 however due to issues with his left foot and ankle patient was referred to the foot and ankle specialist in [place] for evaluation and recently underwent surgery in February of this year. He states that his wounds have healed completely and he is has improved function and is ready to proceed with total knee arthroplasty. Review Of Systems: A 14 point review of systems performed is unremarkable except for those things stated in the HPI and past medical history. Past Medical History: Problems: Osteoarthritis of left knee Hallux valgus of right foot Postop check Status post total right knee replacement Dupuytren's contracture of hand Osteoarthritis of right hip Hip osteomyelitis, right Pre-op exam Low back pain Hip pain, right Synovial cyst of popliteal space [Cr], left knee Tear of left hamstring. Hypertension BPH Obesity Procedure History Procedure Procedure Date Comments Hip replacement Knee replacement Surgery 07/2019 - hand Spinal stenosis 2015 Arthroplasty of knee 2007 Allergies and Sensitivities: NKA Social history: Patient states that he consumes between 12 and 14 alcoholic beverages per week. He denies tobacco or illicit drug use Family history: Noncontributory Current Home Meds: (Last Updated 06/09 13:29) DULoxetine (DULoxetine 60 mg oral delayed release capsule) 60 mg PO Daily acetaminophen (acetaminophen 500 mg oral tablet) 1,000 mg PO q6h PRN: as needed for pain allopurinol (allopurinol 100 mg oral tablet) PO 300 mg daily amoxicillin-clavulanate (Augmentin 875 mg-125 mg oral tablet) 1 tab PO q12h with food or milk ascorbic acid (Vitamin C 500 mg oral tablet) 500 mg PO Daily aspirin (aspirin 325 mg oral delayed release tablet) 325 mg PO bid cholecalciferol (Vitamin D3) 1,000 Int_Unit PO Daily diclofenac (diclofenac sodium 75 mg oral delayed release tablet) 75 mg PO bid PRN: as needed for arthritis hydroCHLOROthiazide (hydroCHLOROthiazide 25 mg oral tablet) 25 mg PO Daily lisinopril 15mg daily multivitamin 1 tab PO Daily oxyCODONE (oxyCODONE 5 mg oral tablet) 5 mg PO q4h PRN: pain - moderate tamSULOsin (tamsulosin 0.4 mg oral capsule) 0.4 mg PO Daily Initial Wt: 06/09 124.6 kg 274 lb Admission Exam Per Admitting Provider Physical Exam: (relevant to the procedure, including heart and lung evaluation) General: Alert and oriented x3 with proper grooming and hygiene Eyes: Pupils are equal and reactive to light with accommodation. Extract movements are intact Throat: Deferred due to COVID-19 precautions Cardiac: Regular rate and rhythm no murmurs or gallops appreciated Lungs: Clear to auscultation throughout no wheezing, rales or rhonchi Abdomen: Obese nondistended, nontender with normal active bowel sounds Extremities: left knee range of motion is from 5 degrees up to 105 degrees. Tender to palpation along the medial joint line. He has 2+ effusion. Skin is intact. Neurovascular intact. Neuro: Cranial nerves II through XII are intact no motor or sensory deficit Skin: Normal in appearance with no open skin areas or discharge Principal Diagnosis Left knee osteoarthritis Discharge Exam Left knee: Immobilizer and outer dressings were moved. Silverlon's were clean dry and intact with no drainage. Patient does have some mild edema over the anterior surface of the, but no erythema, ecchymosis, warmth or palpable deformity. He is able to extend 0 degrees and flex to 85 degrees actively without difficulty. He is able to perform a straight leg raise test. He is able to actively dorsi and plantarflex his foot. Quad strength is 3 out of 5. His calf is soft and supple nontender to palpation. His peripheral pulses are 2+. His capillary refill is less than 2 seconds. Discharge Data Allergies Allergy/AdvReac Type Severity Reaction Status Date / Time No Known Allergies Allergy Unknown Verified 07/02/20 06:40 Procedures Performed Operation Date: 07/02/20 08:15 Actual Procedures p Left Total Knee Arthroplasty(Left) - Cody Bolanos MD Ordered Studies 07/02/20 05:00 US - OR guided needle placemen Routine Hospital Course (1) S/P total knee arthroplasty: Patient did very well overnight. States that he feels great this morning and his pain is well controlled with p.o. medications. He states he is going to contact his and would like to go home around lunchtime today. He states he discussed in-home physical therapy with [facility] home health, with the egg caser this morning. He is very appreciative of the care that he received whi le in-house. Weightbearing as tolerated on left lower extremity with walker assistance and immobilizer use for the first 48 hours postoperatively PT/OT DVT prophylaxis with CHARLY stockings and aspirin Pain control with p.o. medications Keep dressing in place until 2-week follow-up Ice with eZY WRAP Plan on discharge home today with in-home physical therapy for the first 2 weeks postoperatively Follow-up at [facility] [address] orthopedics as previously instructed With questions contact our clinic at Total Time Total Time Spent Total Time Spent (In Minutes): 25 minutes Total Time Includes: Examination of the Patient, Discharge Planning, Medication Reconciliation and Communication With Other Providers Discharge Plan Discharge Items Patient Disposition: Home - Home Health Services Reason For Visit: Left Knee Arthritis Discharge Diagnosis: Left knee Osteoarthritis Activity: As commented below Lifting: None Bathing: Keep incision dry Bathing Comment: May shower tomorrow Sexual Activity: Wait until after follow-up appointment Exercise/Sports: Wait until after follow-up appointment Driving/Machine Use: No driving until cleared by rehab specialist Weightbearing: Left weightbearing Weightbearing Comment: as tolerated with immobilizer and walker Non-emergency contact: Primary Care Provider Call non-emergency contact if: you have any medication questions, your pain is not controlled, your temperature is above 101.5, your wound has increased drainage and your wound pain has increased Follow-up/Referrals: Mary Erazo DO [Primary Care Provider] - Diet: Regular Addtl Attending Provider Instructions: Post-operative Instructions Dear Patient and Family/Friends, Before you are discharged from the hospital, it is important to know what to expect when you get home after surgery. To that end, we have created this sheet of discharge instructions which covers many commonly asked questions. Make sure you go through this sheet in its entirety with your nurse before you are discharged. Please note that we will go over the specifics of your surgery and recovery when you return for your first post-operative visit. Sincerely, Dr. Bolanos Medications 1. Oxycodone 5 mg: take 1-2 tabs every 4-6 hours as needed for pain control. A prescription for 30 tablets will be sent to your pharmacy. 2. Diclofenac Sodium 75 mg: take 1 tab twice daily for 30 days post operatively for pain and inflammation relief. A prescription with 1 refill will be sent to your pharmacy. 3. Aspirin 81 mg: take 1 tab twice daily for 30 days post operatively for blood clot prevention. Please purchase. 4. Extra Strength Tylenol 500 mg: take 2 tabs every 6 hours as needed for additional pain relief. Please purchase. Pain Expect to be in a fair amount of pain after surgery. Remember, our goal is not to eliminate your pain, but to make it tolerable. It is a good idea to stay ahead of your pain by taking the medications you were prescribed once you get home. Typically, the pain starts improving 3-7 days after surgery. You should start weaning off the narcotic pain medication (oxycodone, hydrocodone, hydromorphone, morphine) as soon as your pain improves. Please call our office if your pain is not adequately controlled. Ice Ice your operative site at least 5 times a day for 15-30 minutes at a time. Make sure you have a thin cloth between the ice or cooling unit and your skin to prevent hammer bite. This is especially important if you received a nerve block. Continue icing your operative site for the first 5-7 days after surgery, then as needed. Diet/Nausea/Vomiting Start by drinking clear liquids and eating crackers. If you can tolerate this, then you may resume your normal diet. If you feel nauseated or vomit, take Zofran/ondansetron (if prescribed). Please call our office if you have intractable nausea or vomiting, or, if after hours, you may go to the Emergency Room for help. Constipation Constipation is a common side effect of narcotic pain medication. If you have not had a bowel movement within 2 days after surgery, we recommend purchasing an over the counter laxative such as Milk of Magnesia, Dulcolax, or Miralax from a local pharmacy, and taking it as instructed. Call our clinic if any questions. Slings and Braces If you were placed in a sling or brace, it must be worn at all times, including sleep. You may remove your sling or brace for physical therapy, home exercises, and showering. The length of time you will be in your brace and range of motion restrictions depends on what surgery you had; these details will be reviewed at your first post-operative appointment. Nerve block The anesthesia team sometimes places a nerve block to help with post-operative pain control. This results in significant numbness and inability to move the extremity. The nerve block usually wears off in 8-12 hours, but sometimes can last up to 24 hours. Please call our office if you are still unable to move your extremity after 24 hours, unless you received a pain pump to take home. Nerve blocks typically wear off quickly, so start taking pain medication as soon as you start feeling soreness near your surgical site. Weight bearing and Range of Motion. Do not bear any weight through your operative extremity immediately after surgery. If you had upper extremity surgery, do not lift anything with that arm. If you are in a knee brace, keep it locked in place until your follow-up. We will discuss your weight bearing, range of motion, and lifting restrictions in detail at your first post-operative appointment. Continuous Passive Motion (CPM) Machine If you were prescribed a CPM machine, it will start after your first post- operative appointment, at which time we will give you instructions on the range of motion settings and duration of treatment Physical therapy You will be given a prescription for physical therapy or occupational therapy at your first post-operative appointment. Typically, patients start therapy within 1 week of surgery Wound care and showering We will inspect your wound at your first post-operative visit, and may do a dressing change at that time. Most patients will be in a water-proof dressing that is removed 14 days after surgery. It is normal to see some dried blood on the dressing. Do not remove your dressing, paper strips or sutures yourself unless you are given permission. Showering is allowed the day after surgery. Do not scrub or remove any dressings. The wound should not be submerged underwater (i.e. in a bathtub or pool) until 4 weeks after surgery CHARLY stockings If you were given white stockings, these are to be worn at all times except to shower (on both legs) for the first 2 weeks after surgery. Driving You may not drive while taking narcotic pain medication or while in a cast, splint, sling or brace. You, the patient, need to make the final determination about when you are safe to drive, however, the earliest you may consider driving after surgery is below: Hand/Wrist/Elbow Surgery: 3 days Shoulder Surgery: 2 weeks Hip,/Knee/Ankle Surgery: 4 weeks Fracture repair: 6 weeks Return to Work Your return to work depends on what surgery was done and what type of work you do. Please bring any paperwork your employer needs completed to your first post-operative visit. Also, bring a description of your job duties, as this helps us to understand what risks you may face at work. Travel Avoid long distance travel (greater than 1 hour) in airplanes and cars for the first 6 weeks after surgery. If you must travel, you need to have a Doppler ultrasound done before you travel to rule out a blood clot in your legs. Follow-up You should have a follow-up appointment already scheduled 1-2 days after surgery. If not, please contact our office to make this appointment before you leave the hospital. When to call the office It is normal to have swelling and bruising in the limb that was operated on. This will improve with time. It is also normal to have fevers for the first 2 days after surgery. Reasons you should call your doctor include: Uncontrolled pain; Nausea, vomiting, or constipation that does not improve with medication; Fevers over 101.5, chills, sweats; Drainage or bleeding from the wound; Foul odor; Spreading areas of redness; Any other concerns Pending Studies at Discharge: No Stand-Alone Forms: My [facility] Medications and DC Order Prescriptions: New oxycodone 5 mg tablet 5 mg PO Q4H Qty: 30 RF: 0 Continued tamsulosin 0.4 mg Capsule 0.4 mg PO HS RF: 0 lisinopril 10 mg Tablet 15 mg PO QAM RF: 0 allopurinol 300 mg Tablet 300 mg PO QAM RF: 0 hydrochlorothiazide 25 mg Tablet 25 mg PO QAM RF: 0 hydroxychloroquine 200 mg Tablet 200 mg PO BID RF: 0 cholecalciferol (vitamin D3) [Vitamin D3] 25 mcg (1,000 unit) Capsule 1,000 unit PO QAM RF: 0 duloxetine 60 mg Capsule,Delayed Release(Dr/Ec) 60 mg PO QAM RF: 0 diclofenac sodium 75 mg tablet,delayed release (DR/EC) 75 mg PO BID 30 Days Qty: 60 RF: 1 Discharge Orders: Discharge Order (Routine); Ordered 07/03/20 Ordered By: Harlan Andre Admission Data Admit Date/Time: 07/02/20 10:52 Attending Provider: Cody Bolanos Admit Provider: Cody Bolanos Primary Care Provider: Mary Erazo Other Providers: [facility]
[2020-07-03] MEDS ORDERED: DICLOFENAC SODIUM 75 MG TABCR PO SCH (21:00)
== END 2020-07-03 14:07 | disposition home health service (06) | DRG 470 ==
LOC: ASU 06:01 → 3E 06:01 → OBSVTOIN 10:52

== ENCOUNTER 2020-12-03 05:56 | Observation (INO) ==
--- NOTE | 2020-11-09 10:10 | PAT Medication Instructions ---
Medication Instructions Date of Service November 09, 2020 Home Medications allopurinol 300 mg tablet 300 mg PO QAM cholecalciferol (vitamin D3) 25 mcg (1,000 unit) capsule (Vitamin D3) 1,000 unit PO QAM duloxetine 60 mg capsule,delayed release 60 mg PO QAM hydrochlorothiazide 25 mg tablet 25 mg PO QAM tamsulosin 0.4 mg capsule 0.4 mg PO HS diclofenac sodium 75 mg tablet,delayed release 75 mg PO BID PRN lisinopril 10 mg tablet 15 mg PO QAM ascorbic acid (vitamin C) 500 mg tablet,extended release (Vitamin C ER) 500 mg PO QAM Men's Multivitamin 1 tab PO HS ASK your surgeon for instructions diclofenac sodium 75 mg tablet,delayed release 75 mg PO BID PRN DO NOT take the morning of surgery cholecalciferol (vitamin D3) 25 mcg (1,000 unit) capsule (Vitamin D3) 1,000 unit PO QAM hydrochlorothiazide 25 mg tablet 25 mg PO QAM lisinopril 10 mg tablet 15 mg PO QAM ascorbic acid (vitamin C) 500 mg tablet,extended release (Vitamin C ER) 500 mg PO QAM Take morning of surgery With a small sip of water, OTHERWISE NOTHING TO EAT OR DRINK AFTER MIDNIGHT: allopurinol 300 mg tablet 300 mg PO QAM duloxetine 60 mg capsule,delayed release 60 mg PO QAM Take evening before surgery tamsulosin 0.4 mg capsule 0.4 mg PO HS Men's Multivitamin 1 tab PO HS Other Notes If you have any questions please call us at [phone] or [phone] or [phone] or [phone]
--- NOTE | 2020-11-11 13:23 | Anesthesiology Consultation ---
Date of Service November 11, 2020 Assessment & Plan (1) Encounter for pre-operative examination: Chart Review Chart Review: Acceptable Risk for Surgery (pending surgeon ordered PCP clearance and preop Covid testing results ) and Patient seen in Pre Admission Testing Awaiting surgeon ordered clearance scheduled 11/24/20- did write note to PCP re: hyponatremia Per PAT appt on 11/11/20, patient denies any recent travel or large group activities. No known Covid positive contacts or Covid related symptoms. No known Covid infection in the past 90 days. Pt is vaccinated for Covid.. Preop Covid testing scheduled 11/30/20 or 12/01/20 at [facility] = will await results. Educated on importance of self quarantining, social distancing and wearing mask in public for the patient one week prior to surgery and after Covid testing done Teaching & Discussion Pre-Anesthesia Teaching/Discussion Notes: Instructed NPO after midnight before surgery,except medications with 15 cc of water. Medication instructions provided according to the PAT guidelines. History Surgery Operation Date: 12/03/20 08:15 Proposed Procedures p Left Total Hip Arthroplasty - Cody Bolanos MD Height/Weight Height: 6 ft 2 in Weight: 119.2 kg Allergies Allergy/AdvReac Type Severity Reaction Status Date / Time No Known Allergies Allergy Unknown Verified 11/06/20 09:01 Medications Home Medications Medication Instructions Recorded Confirmed Last Taken allopurinol 300 mg tablet 300 mg PO QAM 05/06/19 11/06/20 07/02/20 04:15 cholecalciferol (vitamin D3) 25 1,000 unit PO QAM 05/06/19 11/06/20 07/01/20 08:30 mcg (1,000 unit) capsule (Vitamin D3) duloxetine 60 mg capsule,delayed 60 mg PO QAM 05/06/19 11/06/20 07/02/20 04:15 release hydrochlorothiazide 25 mg tablet 25 mg PO QAM 05/06/19 11/06/20 07/01/20 08:30 tamsulosin 0.4 mg capsule 0.4 mg PO HS 05/06/19 11/06/20 07/01/20 18:30 diclofenac sodium 75 mg 75 mg PO BID PRN 07/26/20 11/06/20 Unknown tablet,delayed release lisinopril 10 mg tablet 15 mg PO QAM 07/26/20 11/06/20 Unknown ascorbic acid (vitamin C) 500 mg 500 mg PO QAM 11/06/20 11/06/20 Unknown tablet,extended release (Vitamin C ER) ckjpmalk-sztfrdza-tvdcr acid 400 1 tab PO HS 11/06/20 11/06/20 Unknown mcg-vit K 20 mcg-lycop 300 mcg tablet (Men's Multivitamin) Past Medical History Medical History BPH (benign prostatic hyperplasia) Chronic back pain Degenerative disc disease History of parvovirus B19 infection ~2009 Completely resolved Hx of pneumothorax ~2004 s/p fall from 2 story home (+ chest tube/no issues since) No breathing issues Hypertension Obesity Osteoarthritis Rheumatoid arthritis Follows with rheum Spinal stenosis Exercise / Class Metabolic Activity III < 4 Walking/Shop/Light housework (no chest pain or SOB with flat surface ambulation - uses walker for ambulation ) Past Family History Family History Other No family history of adverse response to anesthesia Past Surgical History Surgical History H/O removal of cyst R/L feet History of back surgery x4 revision back surgeries within 2014/2015 r/t post infections > Lumbar History of carpal tunnel release R/L History of cataract surgery R/L History of right hip replacement Right MIGUELITO (07/18/19): SAB at L2 at [facility] History of total knee replacement right/ left S/P bunionectomy R/L S/P epidural steroid injection S/P foot surgery, right several neuromas removed S/P laminectomy 2014 ([facility] [place]) S/P left inguinal hernia repair S/P right knee arthroscopy S/P trigger finger release right Past Anesthesia History No Hx of Anesthesia Complications and No Family Hx of Anesthesia Complications History of PONV No Hx of PONV and No Hx of Motion Sickness Social History Smoking Status: Never smoker tobacco type: smokeless tobacco Do You Dip or Chew Tobacco: No (Quit in ) Hx Alcohol Use: Yes Alcohol type: beer alcohol intake frequency: 0-2 drinks per day (8-10 beers per week ) Hx Substance Use: No substance use type: does not use Review of Systems Hx of snoring - no witnessed apnea - no hx sleep study Patient denies chest pain, shortness of breath, dyspnea on exertion, reflux, cough, wheezing, palpitations. No hx of seizures, stroke, [place]. No hx of blood clots or blood transfusions Physical Exam Vital Signs VITALS BP 124/70 P 85 TEMP 98.6 SP02 94% RESP 16 Constitutional no acute distress ENMT Mouth: no TMJ clicking Thyromental Distance: > or= 3.5 Finger Breadths Mallampati Class: II Neck neck extension not limited Respiratory normal respiratory effort; no respiratory distress Auscultation: lungs clear to auscultation bilaterally; no wheezes Cardiovascular Rate/Rhythm: regular rate and regular rhythm Heart Sounds: no murmur Vessels: no carotid bruit Musculoskeletal Spine: no pain with cervical ROM Extremities: extremities normal to inspection Psychiatric Orientation: alert Lab Results Anesthesia Preop Results Results Anesthesia Widget: WBC 4.27 K/uL (4.8-10.8) L 11/11/20 Hgb 14.6 g/dL (14.0-18.0) 11/11/20 Hct 41.4 % (42-52) L 11/11/20 Plt 221 K/uL (130-400) 11/11/20 Na 130 mmol/L (136-145) L 11/11/20 K 3.5 mmol/L (3.5-5.1) 11/11/20 Cl 95 mmol/L (98-107) L 11/11/20 CO2 26 mmol/L (21-32) 11/11/20 BUN 10 mg/dl (7-18) 11/11/20 Creat 0.73 mg/dl (0.6-1.4) 11/11/20 Glucose Level 88 mg/dl (70-99) 11/11/20 PT 9.9 Seconds (9.0-12.0) 11/11/20 INR 1.0 (0.9-1.1) 11/11/20 HA1c 5.8 % (4.5-5.6) H 11/11/20 Urine Color Yellow 11/11/20 Urine Appearance Clear (Clear) 11/11/20 Urine pH 6.0 (4.5-7.5) 11/11/20 Urine Specific [place] 1.016 (1.000-1.030) 11/11/20 Urine Protein Negative (Negative) 11/11/20 Urine Glucose (UA) Negative (Negative) 11/11/20 Urine Ketones Negative (Negative) 11/11/20 Urine Blood Negative (Negative) 11/11/20 Urine Nitrite Negative (Negative) 11/11/20 Urine Bilirubin Negative (Negative) 11/11/20 Urine Urobilinogen Negative (Negative) 11/11/20 Urine Leukocyte Esterase Negative (Negative) 11/11/20 Blood Type A Positive 11/11/20 Antibody Screen NEGATIVE 11/11/20 Lab Comments: Will send labs to review at PCP clearance re: hyponatremia Testing Electrocardiogram Date: 06/09/20 Normal sinus rhythm with sinus arrhythmia at 69 bpm. Cervical Spine Date: 11/11/20 FINDINGS: The cervical spine is visualized from C1-C6. No fractures or subluxations are identified. Degenerative changes are seen in the cervical spine. The alignment is anatomic. Prevertebral soft tissues are within normal limits. IMPRESSION: Degenerative change without acute abnormality.
--- NOTE | 2020-11-12 14:39 | History & Physical Report ---
Date of Service November 12, 2020 Assessment & Plan (1) Osteoarthritis of left hip: Plan: PRE-OP Diagnosis: Left hip osteoarthritis Planned Procedure: Left total hip arthroplasty Plan: Patient is scheduled to undergo this procedure at [facility] as an outpatient on , December 03, [address] Bolanos. Risks and complications of the procedure such as: Infection, bleeding, pain, scarring, nerve blood vessel damage, weakness, wound problems, stiffness, incomplete relief of symptoms, hardware failure, hardware loosening, wear, fracture, tendon or ligament injury, dislocation, leg length inequality, blood clots, embolism, heart attack, stroke and were explained the patient at his visit today by Dr. Bolanos. Informed consent form procedure was obtained. Patient also understands risks of proceeding with surgical invention during the COVID-19 pandemic. Currently he is asymptomatic and understands that he will need to be tested prior to her surgery. Patient states he has an appointment scheduled with his PCP next week for preoperative clearance. He states that he has his appointment with anesthesia on November 11 at the hospital and while there he will obtain a CBC with differential complete metabolic panel, PT/INR, blood type and screen, urinalysis, urine culture and sensitivity, EKG, hemoglobin A1c and a nasal culture for MRSA. During today's visit we discussed doing surgery outpatient. Patient states he is fine with this because he is already underwent right total hip arthroplasty and bilateral total knee arthroplasties without any issues. He states he has a walker he will bring with him on the day of the surgery. He has no contraindications that would prevent him from doing surgery as an outpatient. He states that for his previous surgeries he used [facility] for his home health and rehab. He states that he has taken part in the joint venture courses in the past and may do so again. States his lives at home with him and is able to take care of him. I advised the patient we will contact him about a week before the surgery to be sure that he has all of the medications that were prescribed during today's visit. Patient also states that he has the hip kit from his previous surgery, raised toilet seat, shower chair and electronic recliner that will allow him to transition from seated to standing position without difficulty. Patient is scheduled to see me for his 2- week postoperative follow-up on December 18 at 115. At that visit we will provide him with a prescription to obtain outpatient physical therapy along with his rehab protocol. Patient verbalized understanding of all information provided during today's visit. He thanks for the care that he received. If he has questions or concerns that should arise prior to his surgery date, he will contact clinic. History of Present Illness Chief Complaint: Chief Complaint: Severe left hip pain Primary Care Provider: Mary Erazo DO History of Present Illness (including history relevant to procedure): This 70-year-old male presents the clinic today for his preoperative history and physical. Patient states that he is fallen 3 times over the past week or so. He states that his left knee also seems painful but states that his range of motion is not affected. He feels very unstable on the left lower extremity since having a corticosteroid injection under ultrasound guidance on September 25. Patient states the hip injection helped for a few days but since that time has had severe pain that makes it very difficult for him to walk. Patient states he is unable to sleep at night due to the pain. He localizes most of his pain to the groin with any type of movement of his hip. Patient now requires a walker for ambulatory purposes. Review Of Systems: A 12 point review systems performed is unremarkable except for those things stated in the HPI and past medical history. Past Medical History: Problems: Osteoarthritis of left hip Osteoarthritis of left knee Hallux valgus of right foot Postop check Status post total right knee replacement Dupuytren's contracture of hand Osteoarthritis of right hip Hip osteomyelitis, right Pre-op exam Low back pain Hip pain, right Synovial cyst of popliteal space [Cr], left knee Tear of left hamstring. Hypertension BPH Procedure History Procedure Procedure Date Comments Hip replacement Knee replacement Surgery 07/2019 - hand Spinal stenosis 2015 Arthroplasty of knee 2008 Allergies and Sensitivities: NKA Social history: Patient states that he consumes between 10 and 12 alcoholic beverages per week but denies tobacco or illicit drug use. Family history: Noncontributory Current Home Meds: (Last Updated 11/12 14:13) DULoxetine (DULoxetine 60 mg oral delayed release capsule) 60 mg PO Daily acetaminophen (acetaminophen 500 mg oral tablet) 1,000 mg PO q6h PRN: as needed for pain allopurinol (allopurinol 100 mg oral tablet) PO 300 mg daily amoxicillin-clavulanate (Augmentin 875 mg-125 mg oral tablet) 1 tab PO q12h with food or milk ascorbic acid (Vitamin C 500 mg oral tablet) 500 mg PO Daily aspirin (aspirin 325 mg oral delayed release tablet) 325 mg PO bid cholecalciferol (Vitamin D3) 1,000 Int_Unit PO Daily diclofenac (diclofenac sodium 75 mg oral delayed release tablet) 75 mg PO bid PRN: as needed for arthritis hydroCHLOROthiazide (hydroCHLOROthiazide 25 mg oral tablet) 25 mg PO Daily lisinopril 15mg daily multivitamin 1 tab PO Daily ondansetron (Zofran 4 mg oral tablet) 4 mg PO q8h PRN: as needed for nausea/vomiting oxyCODONE (oxyCODONE 5 mg oral tablet) 10 mg PO q4h PRN: as needed for pain Post op pain control senna (Senokot 8.6 mg oral tablet) 8.6 mg PO qhs PRN: as needed for constipation with plenty of water sildenafil (sildenafil 100 mg oral tablet) 100 mg PO Daily PRN: as needed for erectile dysfunction tamSULOsin (tamsulosin 0.4 mg oral capsule) 0.4 mg PO Daily traMADol (traMADol 50 mg oral tablet) 100 mg PO q4h PRN: as needed for pain not to exceed 400 mg/dayPost op pain control Initial Wt: 11/10 119.8 kg 264 lb Allergies Allergy/AdvReac Type Severity Reaction Status Date / Time No Known Allergies Allergy Unknown Verified 11/06/20 09:01 Home Medications Medication Instructions Recorded Confirmed Type allopurinol 300 mg tablet 300 mg PO QAM 05/06/19 11/06/20 History cholecalciferol (vitamin D3) 25 1,000 unit PO QAM 05/06/19 11/06/20 History mcg (1,000 unit) capsule (Vitamin D3) duloxetine 60 mg capsule,delayed 60 mg PO QAM 05/06/19 11/06/20 History release hydrochlorothiazide 25 mg tablet 25 mg PO QAM 05/06/19 11/06/20 History tamsulosin 0.4 mg capsule 0.4 mg PO HS 05/06/19 11/06/20 History diclofenac sodium 75 mg 75 mg PO BID PRN 07/26/20 11/06/20 History tablet,delayed release lisinopril 10 mg tablet 15 mg PO QAM 07/26/20 11/06/20 History ascorbic acid (vitamin C) 500 mg 500 mg PO QAM 11/06/20 11/06/20 History tablet,extended release (Vitamin C ER) xozockmq-xxdjgycu-ocvxg acid 400 1 tab PO HS 11/06/20 11/06/20 History mcg-vit K 20 mcg-lycop 300 mcg tablet (Men's Multivitamin) Past Med/Surg History Medical History BPH (benign prostatic hyperplasia) Chronic back pain Degenerative disc disease History of parvovirus B19 infection ~2009 Completely resolved Hx of pneumothorax ~2004 s/p fall from 2 story home (+ chest tube/no issues since) No breathing issues Hypertension Obesity Osteoarthritis Rheumatoid arthritis Follows with rheum Spinal stenosis Surgical History H/O removal of cyst R/L feet History of back surgery x4 revision back surgeries within 2014/2015 r/t post infections > Lumbar History of carpal tunnel release R/L History of cataract surgery R/L History of right hip replacement Right MIGUELITO (07/18/19): SAB at L2 at [facility] History of total knee replacement right/ left S/P bunionectomy R/L S/P epidural steroid injection S/P foot surgery, right several neuromas removed S/P laminectomy 2014 ([facility] [place]) S/P left inguinal hernia repair S/P right knee arthroscopy S/P trigger finger release right Family History Other No family history of adverse response to anesthesia Social History Smoking Status: Never smoker Second Hand Exposure: No; Hx Alcohol Use: Yes Alcohol type: beer Hx Substance Use: No Preferred Language: Malagasy Communication Ability: Effective Crusher Screen Repairer Required: No Beliefs That Will Affect Care: None marital status: Current Living Situation: Spouse Feels Safe at Home: Yes Assistive Devices: Walker Review of Systems All systems reviewed & are unremarkable except as noted in HPI & below Physical Exam Physical Exam: Physical Exam: (relevant to the procedure, including heart and lung evaluation) General: Alert and oriented x3 with proper grooming and hygiene Eyes: Pupils are equal and reactive to light with accommodation. Extract movements are intact Throat: Deferred due to COVID-19 precautions Cardiac: Regular rate and rhythm with no murmurs or gallops appreciated Lungs: Clear to auscultation throughout with no wheezing, rales or rhonchi Abdomen: Obese, nondistended, nontender with NABS Extremities: Left hip; positive logroll test, positive Stinchfield test, positive straight leg raise test, positive NAREN test. Patient experienced significant pain to the groin with passive AB and adduction of the lower extremity. Flexion of the hip to 80 degrees causes severe groin pain as does external rotation to 35 degrees internal rotation to 0 degrees. Positive scour impingement test. Tenderness to palpation of the groin and posterior hip. Neurovascularly intact in left lower extremity. Neuro: Cranial nerves II through XII are intact no motor or sensory deficit Skin: Normal in appearance with no open skin areas or discharge Code Status & VTE Plan VTE Prophylaxis Plan VTE Prophylaxis will be ordered: Yes
[2020-12-03] MEDS ORDERED: LR 60ML/HR IV SCH (06:00)
[2020-12-03] MEDS ORDERED: dexAMETHasone 4 MG TAB PO SCH ×2 (06:00→14:00)
[2020-12-03] MEDS ORDERED: ACETAMINOPHEN 500 MG TAB PO SCH (06:00)
[2020-12-03] MEDS ORDERED: FAMOTIDINE 20 MG TAB PO SCH (06:00)
[2020-12-03] MEDS ORDERED: TRANEXAMIC ACID 1,000 MG **IV Intra-op IV SCH (06:00)
[2020-12-03] MEDS ORDERED: traMADol HCL 50 MG TABLET PO SCH (06:00)
[2020-12-03] MEDS ORDERED: TRANEXAMIC ACID 1,000 MG **IV Pre-op IV SCH (06:00)
[2020-12-03] MEDS ORDERED: ROPIVACAINE 0.5% HCL/PF 150 MG, BUPIVACAINE 0.75% MPF 20 ML, EPINEPHrine 0.15 MG, Ketor... INFIL SCH (06:00)
[2020-12-03] MEDS ORDERED: Scopolamine 1 MG TDSY TD SCH (06:00)
[2020-12-03] MEDS ORDERED: LR 500ML BOLUS, THEN 15ML/HR IV SCH (06:00)
[2020-12-03] MEDS ORDERED: METOCLOPRAMIDE HCL 10 MG TABLET PO SCH (06:00)
[2020-12-03] MEDS ORDERED: CeleBREX 200 MG CAP PO SCH (06:00)
[2020-12-03] MEDS ORDERED: PROPOFOL IV EMULSION 10 MG/ML 20 ML VIAL IV ONE ×2 (06:24→08:40)
[2020-12-03] MEDS ORDERED: MIDAZOLAM HCL 1 MG/ML 2ML VIAL ONE ×2 (06:24→06:39)
[2020-12-03] MEDS ORDERED: LIDOCAINE 2% 20 MG/ML 5 ML SYR IV ONE (06:24)
[2020-12-03] MEDS ORDERED: fentaNYL citrate 100 MCG/2 ML VIAL ONE (06:25)
[2020-12-03] MEDS ORDERED: LIDOCAINE 2%/EPINEPHRINE 1:200,000 20 ML SDV ONE (06:28)
[2020-12-03] MEDS ORDERED: BUPIVACAINE 0.5 % 5 MG/1 ML MPF 30ML VIAL ONE (06:29)
[2020-12-03] MEDS ORDERED: ePHEDrine sulfate 50 MG/ML AMP IV PRN (07:41)
[2020-12-03] MEDS ORDERED: ONDANSETRON INJ 2 MG/ML 2 ML VIAL IV PRN ×2 (07:41→10:38)
[2020-12-03] MEDS ORDERED: HYDROmorphone INJ 2 MG/ML SYR/VIAL IV PRN (07:41)
[2020-12-03] MEDS ORDERED: fentaNYL citrate 100 MCG/2 ML VIAL IV PRN (07:41)
[2020-12-03] MEDS ORDERED: ATROPINE SULFATE 0.1 MG/ML 10ML SYR IV PRN (07:41)
[2020-12-03] MEDS ORDERED: LIDOCAINE 2% MPF LOCAL 5 ML VIAL INFIL ONE (07:45)
[2020-12-03] MEDS ORDERED: ORTHO JOINT ANESTHETIC ONE (07:49)
--- NOTE | 2020-12-03 08:15 | History & Physical Bridge Note ---
Date of Service December 03, 2020 History & Physical Bridge Note I have examined the patient, reviewed the History & Physical and in the interval since the performance of the History & Physical I have noted the following changes of clinical significance: no changes noted
[2020-12-03] MEDS ORDERED: MEPIVACAINE HCL 2% 20 ML VIAL ONE (08:33)
[2020-12-03] MEDS ORDERED: KETAMINE 50 MG/5 ML SYRINGE ONE (08:44)
[2020-12-03] MEDS ORDERED: DEXAMETHASONE SOD INJ 4 MG/ML VIAL ONE (08:50)
[2020-12-03] MEDS ORDERED: ONDANSETRON INJ 2 MG/ML 2 ML VIAL ONE (08:50)
--- NOTE | 2020-12-03 10:32 | Operative Report ---
Post Operative Report Pre & Post Diagnosis Operation Date: 12/03/20 08:15 Pre-Op Diagnosis: Osteoarthritis of Left Hip Post-Op Diagnosis: Osteoarthritis of Left Hip I identified the patient and participated in the time-out.: Yes Procedure Operation Date: 12/03/20 08:15 Actual Procedures p Left Total Hip Arthroplasty - Uncemented(Left) - Cody Bolanos MD Surgeon Cody Bolanos MD Associate Music Professor THOMPSON Andre PA-C and RAQUEL Ravi2. No resident or fellow was available. Estimated Blood Loss 100 Findings Consistent with Post-Op Diagnosis Fluids 1200 cc Specimens Left femoral head Anesthesia Type Spinal MAC Complications none Disposition Disposition: Recovery Room Indications 70-year-old male, with left hip pain refractory to conservative management. X- rays demonstrate [id number] arthritis. I had a long discussion with him about the risk and benefits surgery, alternatives to surgery, and expected outcomes. After reviewing all these elected proceed with surgery. All questions were answered. Informed consent was signed. Patient was a candidate for outpatient total joint arthroplasty. This was arranged preoperatively through our office with the proper evaluations and set up in-home physical therapy. He has previously had right total hip and left total knee done by me and has had good quick recovery's after these surgeries. Patient understands the risks and b enefits of an outpatient total joint and elects to proceed. Description of Procedure Patient was identified in the preoperative holding area and the surgical site, left hip, was marked. A spinal anesthetic was placed, then the patient was brought back to the main operating room, placed in the operating table and moved into the lateral decubitus position. Axillary roll was placed. All bony prominences were padded. Perioperative antibiotics and tranexamic acid 1 gram IV were administered. Operative extremity was prepped and draped in the normal sterile fashion. Prior to incision a multidisciplinary timeout was called. All in the room were in agreement. We began by making an incision for a posterior approach to the hip. We dissected down through subcutaneous tissues to the level of the fascia. The fascia was incised in line with the incision. Charnley bow was placed. The trochanteric bursa was excised. The piriformis and short external rotators were dissected off the posterior aspect of the hip. A box cut was made in the capsule. The femoral head was dislocated. The femoral neck cut was made at our preoperative template. The acetabulum was then exposed. The labrum was sharply excised. Contents of the cotyloid fossa were removed with electrocautery. We then began reaming at a size 8 mm less than our preoperative template. We reamed up by [address] the way up to a size 60 mm cup. This gave us good bleeding cancellus bone circumferentially. The acetabulum was then irrigated out and dried. The real [place] Gription cup was then impacted down into position with 45 degrees of lateral opening and 25 degrees of anteversion. A single cancellous bone screw was placed up into the ilium. Excellent fixation was obtained. An Altrx polyethylene liner for a 36 mm femoral head was then impacted into the shell. The locking mechanism was checked to ensure that it had engaged which it had. Next we turned our attention to the femur. The lateral neck was removed with a box osteotome. Intramedullary guide was used followed by the lateralizing reamer. We then reamed up to a size 7 Wetzel stem. We then broached all the way up to a size 7 which had excellent stability and sat at the level of the neck cut. We began trialing with a high offset neck and a +5 head. Hip was reduced. Leg lengths were symmetric. The hip was stable in extension and external rotation, and stable in the sleeper position. At 90 degrees of hip flexion the hip could be internally rotated 55 degrees before levering out of the cup. I was very happy with the stability exam. Therefore the hip was dislocated and the femoral trial was removed. The femoral canal was irrigated and dried. The real size [] offset Wetzel femoral stem was opened up. This was impacted down into position. It sat at the same level as the femoral trial. Therefore the 36 mm ceramic femoral head with a +5 mm offset was opened up and gently impacted down onto the trunnion. The hip was atraumatically reduced. Another 1 gram of IV tranexamic acid was started prior to closure. The wound was irrigated out with sterile Betadine solution. The periarticular injection cocktail was then placed. The short external rotators, piriformis, and posterior capsule were repaired through drill holes in the greater trochanter using #2 Vicryl. The fascia was run with a looped #1 PDS. The subcutaneous layer was closed with #1 PDS. The dermal layer was closed with 2-0 Vicryl. Zip line was used for the skin followed by Dermabond. A Silverlon dressing was placed followed by a compressive dressing with foam tape. The patient was then rolled supine. Leg lengths were rechecked and were symmetric. An abduction pillow was placed. Sedation was lifted and the patient was transferred to recovery room in stable condition. Summary of implants: Depuy [place] Gription Acetabular Shell Sector Cup, 60 mm outer diameter [place] Cancellous bone screw, 6.5 x 40 mm [place] Altrx Polyethylene Acetabular Liner, Neutral, with a 36 mm inner diameter DePuy Wetzel Femoral stem with Porocoat, 12/14 taper, size 7 high offset 36 mm ceramic femoral head with +5 offset Postoperative course: Patient will be discharged home from the recovery room after passing the safety checklist. Patient will be weightbearing as tolerated with posterior hip precautions. Aspirin for DVT prophylaxis I attest to the content of the Intraoperative Record and any orders documented therein. Any exceptions are noted below.
[2020-12-03] MEDS ORDERED: NALOXONE HCL 0.4 MG/1 ML VIAL/CARP IV PRN (10:38)
[2020-12-03] MEDS ORDERED: MAGNESIUM HYDROXIDE SUSP 30 ML UDC PO PRN (10:38)
[2020-12-03] MEDS ORDERED: ALUMINUM/MAGNESIUM SUSP 30 ML UDC PO PRN (10:38)
[2020-12-03] MEDS ORDERED: KETOROLAC TROMETHAMINE 15 MG/ML VIAL IV STA (10:38)
[2020-12-03] MEDS ORDERED: bisacodyL 10 MG SUPP PR PRN (10:38)
[2020-12-03] MEDS ORDERED: KETOROLAC TROMETHAMINE 15 MG/ML VIAL IV ONE (10:38)
[2020-12-03] MEDS ORDERED: TAMSULOSIN HCL 0.4 MG CAP PO PRN (10:43)
--- NOTE | 2020-12-03 10:52 | Operative Report ---
Post Operative Report Pre & Post Diagnosis Operation Date: 12/03/20 08:15 Pre-Op Diagnosis: Osteoarthritis of Left Hip Post-Op Diagnosis: Osteoarthritis of Left Hip I identified the patient and participated in the time-out.: Yes Procedure Operation Date: 12/03/20 08:15 Actual Procedures p Left Total Hip Arthroplasty - Uncemented(Left) - Cody Bolanos MD Surgeon Cody Bolanos MD Shovel Loader Operator THOMPSON Andre PA-C and Geno Pina MS-2. No resident or fellow was available. Estimated Blood Loss 100 Findings Consistent with Post-Op Diagnosis Specimens femoral head Description of Procedure I was present during the entire procedure assisting with positioning, prepping, draping, wound retraction, wound closure, dressing and abduction pillow placement. I attest to the content of the Intraoperative Record and any orders documented therein. Any exceptions are noted below.
[2020-12-03] MEDS ORDERED: KETOROLAC 30 MG/ML VIAL ONE (11:00)
--- NOTE | 2020-12-03 12:04 | XRay Report ---
XR pelvis 1-2V routine INDICATION: MN ^Y ^AMM ^Post Surgical ^INCLUDE ALL OF IMPLANT TECHNIQUE: A single frontal view of the pelvis was obtained. Comparison: None available at the time of this dictation. FINDINGS: Interval placement of a left total hip arthroplasty. The orthopedic hardware is in satisfactory align ment. Subcutaneous emphysema is seen. The joint spaces are well-maintained. No significant soft tiss ue abnormality is seen. IMPRESSION: Interval placement of left total hip arthroplasty with expected postsurgical appearance. Stable right arthroplasty. ACT 112: Negative or not required by law. Electronically signed by: Jason Brar M.D. 12/03/2020 12:03 PM
--- NOTE | 2020-12-03 12:39 | Anesthesiology Progress Note ---
Date of Service December 03, 2020 Anesthesia Post Procedure Vital Signs Vital Signs: Temp Pulse Pulse Resp BP BP Pulse Ox 12/03/20 12:15 78 16 140/85 94 12/03/20 11:45 36.4 C L 70 16 121/77 98 12/03/20 11:30 72 18 113/72 99 12/03/20 11:20 73 18 97/60 L 100 12/03/20 11:10 69 20 123/60 100 12/03/20 11:00 71 16 103/61 99 12/03/20 10:55 66 13 112/66 100 12/03/20 10:45 81 14 119/68 93 12/03/20 10:35 36.3 C L 80 18 107/63 99 12/03/20 06:33 37.3 C 95 H 18 166/91 H 95 Pain Intensity Left Hip: Pain Intensity: 3 Bilateral Shoulder: Pain Intensity: 3 Left Knee: Pain Intensity: 2 Transfer of Care Handoff Completed per policy Notes Mental Status: alert / awake / arousable and participated in evaluation Patient Amnestic to Procedure: Yes Nausea / Vomiting: adequately controlled Pain: adequately controlled Airway Patency, RR, SpO2: stable & adequate BP & HR: stable & adequate Hydration State: stable & adequate Anesthetic Complications: no major complications apparent and Pt Satisfied with anesthetic care
[2020-12-03] MEDS: oxyCODONE HCL IR 5 MG TAB (IMMEDIATE RELEASE) PO PRN ×2 (13:20→14:02)
[2020-12-03] MEDS ORDERED: HYDROmorphone INJ 0.5 MG/0.5 ML SYR IV PRN (15:12)
[2020-12-03] MEDS ORDERED: HYDROmorphone INJ 0.5 MG/0.5 ML SYR ONE (15:13)
[2020-12-03] MEDS: ACETAMINOPHEN 500 MG TAB PO SCH ×2 (15:15→22:12)
[2020-12-03] MEDS: SODIUM CHLORIDE 0.9% 1000ML 1,000 ML IV SCH ×2 (17:43→23:22)
[2020-12-03] MEDS: CeleBREX 200 MG CAP PO SCH ×2 (18:10→20:34)
[2020-12-03] MEDS: Scopolamine CHECK PATCH PLACEMENT SCH ×2 (18:13→23:53)
[2020-12-03] MEDS: DOCUSATE SODIUM 100 MG CAP PO SCH (20:34)
[2020-12-03] MEDS ORDERED: SENNA 8.6 MG TAB PO SCH (21:00)
[2020-12-04] MEDS: ACETAMINOPHEN 500 MG TAB PO SCH ×2 (05:40→13:50)
[2020-12-04] MEDS: oxyCODONE HCL IR 5 MG TAB (IMMEDIATE RELEASE) PO PRN ×2 (05:40→11:59)
[2020-12-04] MEDS ORDERED: MULTIVITAMIN TAB PO SCH (09:00)
[2020-12-04] MEDS ORDERED: ASPIRIN 81 MG ECTAB PO SCH (09:00)
[2020-12-04] MEDS: DOCUSATE SODIUM 100 MG CAP PO SCH (10:17)
[2020-12-04] MEDS: CeleBREX 200 MG CAP PO SCH (10:18)
--- NOTE | 2020-12-04 10:18 | Orthopedic Progress Note ---
Date of Service December 04, 2020 Assessment & Plan (1) S/P total hip arthroplasty: Plan: PT/OT Weightbearing as tolerated with walker assistance Abduction pillow use x6 weeks DVT prophylaxis with CHARLY stockings and aspirin Ice with EZ wrap Pain control with p.o. medications Total hip precautions Keep Silverlon dressing in place until 2-week follow-up Plan on discharge home today after lunch with in-home physical therapy With [facility] Follow-up at [facility] orthopedics as previously scheduled With questions contact our clinic at [phone] Admission and Anticipated Discharge Date Admission Date: December 03, 2020 Subjective This 70-year-old male is day 1 status post left total hip arthroplasty. We have planned on doing an outpatient total hip, however patient was unable to stand or bear weight after the surgery yesterday so we decided to admit him overnight. Patient states he is doing much better this morning. He states that he was up walking around about 4 AM. States that he was up a few hours ago to void. States his pain is well controlled at present. He is now able to perform straight leg raise test. He states he will be ready to go home today after lunch. Currently he denies chest pain, shortness of breath, fever, chills, sweats, lethargy, numbness or tingling in his left lower extremity, nausea, vomiting or diarrhea. Review of Systems Review of Systems: All systems reviewed & are unremarkable except as noted in Subjective Physical Exam Physical Exam: Left lower extremity: Outer dressing was removed from the patient's left hip. Silverlon is in place and completely clean. Patient is able to perform an active straight leg raise test. He is able to actively flex his knee to 90 degrees and extend 0 degrees. Logroll test is negative. Light passive internal and external rotation of the hip causes some anterior thigh pain. Patient no longer has any groin pain. Patient is neurovascularly intact in the left lower extremity. Results & Data ([facility]) Vital Signs (Past 12 Hours) Vital Signs Temp Pulse Resp BP Pulse Ox 12/04/20 07:20 36.5 C 64 16 145/79 H 96 12/04/20 03:54 36.5 C 63 16 133/75 98 12/03/20 22:41 36.6 C 71 16 123/70 96
[2020-12-04] MEDS: Scopolamine CHECK PATCH PLACEMENT SCH (10:20)
--- NOTE | 2020-12-04 10:20 | Discharge Summary ---
Date of Service December 04, 2020 Admission HPI Per Admitting Provider History of Present Illness (including history relevant to procedure): This 70-year-old male presents the clinic today for his preoperative history and physical. Patient states that he is fallen 3 times over the past week or so. He states that his left knee also seems painful but states that his range of motion is not affected. He feels very unstable on the left lower extremity since having a corticosteroid injection under ultrasound guidance on September 25. Patient states the hip injection helped for a few days but since that time has had severe pain that makes it very difficult for him to walk. Patient states he is unable to sleep at night due to the pain. He localizes most of his pain to the groin with any type of movement of his hip. Patient now requires a walker for ambulatory purposes. Review Of Systems: A 12 point review systems performed is unremarkable except for those things stated in the HPI and past medical history. Past Medical History: Problems: Osteoarthritis of left hip Osteoarthritis of left knee Hallux valgus of right foot Postop check Status post total right knee replacement Dupuytren's contracture of hand Osteoarthritis of right hip Hip osteomyelitis, right Pre-op exam Low back pain Hip pain, right Synovial cyst of popliteal space [Cr], left knee Tear of left hamstring. Hypertension BPH Procedure History Procedure Procedure Date Comments Hip replacement Knee replacement Surgery 07/2019 - hand Spinal stenosis 2015 Arthroplasty of knee 2007 Allergies and Sensitivities: NKA Social history: Patient states that he consumes between 10 and 12 alcoholic beverages per week but denies tobacco or illicit drug use. Family history: Noncontributory Current Home Meds: (Last Updated 11/12 14:13) DULoxetine (DULoxetine 60 mg oral delayed release capsule) 60 mg PO Daily acetaminophen (acetaminophen 500 mg oral tablet) 1,000 mg PO q6h PRN: as needed for pain allopurinol (allopurinol 100 mg oral tablet) PO 300 mg daily amoxicillin-clavulanate (Augmentin 875 mg-125 mg oral tablet) 1 tab PO q12h with food or milk ascorbic acid (Vitamin C 500 mg oral tablet) 500 mg PO Daily aspirin (aspirin 325 mg oral delayed release tablet) 325 mg PO bid cholecalciferol (Vitamin D3) 1,000 Int_Unit PO Daily diclofenac (diclofenac sodium 75 mg oral delayed release tablet) 75 mg PO bid PRN: as needed for arthritis hydroCHLOROthiazide (hydroCHLOROthiazide 25 mg oral tablet) 25 mg PO Daily lisinopril 15mg daily multivitamin 1 tab PO Daily ondansetron (Zofran 4 mg oral tablet) 4 mg PO q8h PRN: as needed for nausea/vomiting oxyCODONE (oxyCODONE 5 mg oral tablet) 10 mg PO q4h PRN: as needed for pain Post op pain control senna (Senokot 8.6 mg oral tablet) 8.6 mg PO qhs PRN: as needed for constipation with plenty of water sildenafil (sildenafil 100 mg oral tablet) 100 mg PO Daily PRN: as needed for erectile dysfunction tamSULOsin (tamsulosin 0.4 mg oral capsule) 0.4 mg PO Daily traMADol (traMADol 50 mg oral tablet) 100 mg PO q4h PRN: as needed for pain not to exceed 400 mg/dayPost op pain control Initial Wt: 11/10 119.8 kg 264 lb Admission Exam Per Admitting Provider Physical Exam: (relevant to the procedure, including heart and lung evaluation) General: Alert and oriented x3 with proper grooming and hygiene Eyes: Pupils are equal and reactive to light with accommodation. Extract movements are intact Throat: Deferred due to COVID-19 precautions Cardiac: Regular rate and rhythm with no murmurs or gallops appreciated Lungs: Clear to auscultation throughout with no wheezing, rales or rhonchi Abdomen: Obese, nondistended, nontender with NABS Extremities: Left hip; positive logroll test, positive Stinchfield test, positive straight leg raise test, positive NAREN test. Patient experienced significant pain to the groin with passive AB and adduction of the lower extremity. Flexion of the hip to 80 degrees causes severe groin pain as does e xternal rotation to 35 degrees internal rotation to 0 degrees. Positive scour impingement test. Tenderness to palpation of the groin and posterior hip. Neurovascularly intact in left lower extremity. Neuro: Cranial nerves II through XII are intact no motor or sensory deficit Skin: Normal in appearance with no open skin areas or discharge Principal Diagnosis Left hip osteoarthritis Discharge Exam Left lower extremity: Outer dressing was removed from the patient's left hip. Silverlon is in place and completely clean. Patient is able to perform an active straight leg raise test. He is able to actively flex his knee to 90 degrees and extend 0 degrees. Logroll test is negative. Light passive internal and external rotation of the hip causes some anterior thigh pain. Patient no longer has any groin pain. Patient is neurovascularly intact in the left lower extremity. Discharge Data Allergies Allergy/AdvReac Type Severity Reaction Status Date / Time No Known Allergies Allergy Unknown Verified 12/03/20 06:25 Procedures Performed Operation Date: 12/03/20 08:15 Actual Procedures p Left Total Hip Arthroplasty - Uncemented(Left) - Cody Bolanos MD Hospital Course (1) S/P total hip arthroplasty: We initially planned on doing the patient's total hip arthroplasty outpatient, however he failed his safety test following the surgery and was unable to bear weight on his left lower extremity. Therefore, we elected to admit the patient overnight. He is doing much better today. He states he has been able to be open ambulatory since 4:00 this morning. He states that he feels safe to go home after lunch today. Patient is scheduled to have his initial evaluation with [facility] home health tomorrow morning. PT/OT Weightbearing as tolerated with walker assistance Abduction pillow use x6 weeks DVT prophylaxis with CHARLY stockings and aspirin Ice with EZ wrap Pain control with p.o. medications Total hip precautions Keep Silverlon dressing in place until 2-week follow-up Plan on discharge home today after lunch with in-home physical therapy With [facility] Follow-up at [facility] orthopedics as previously scheduled With questions contact our clinic at [phone] Total Time Total Time Spent Total Time Spent (In Minutes): 25 minutes Discharge Plan Discharge Items Patient Disposition: Home - Home Health Services Reason For Visit: Osteoarthritis Hip Left Discharge Diagnosis: Osteoarthritis of left hip Activity: As commented below Lifting: None Bathing: Keep incision dry Bathing Comment: may shower tomorrow Sexual Activity: Wait until after follow-up appointment Exercise/Sports: Wait until after follow-up appointment Driving/Machine Use: No driving until cleared by epoxy specialist Weightbearing: Left weightbearing Weightbearing Comment: as tolerated with walker assistance Non-emergency contact: Primary Care Provider Call non-emergency contact if: you have any medication questions, your pain is not controlled, your temperature is above 101.5, your wound has increased drainage and your wound pain has increased Follow-up/Referrals: [facility] [place] [Outside] (as per surgeon's office) Mary Erazo, [Primary Care Provider] - Diet: Regular Addtl Attending Provider Instructions: Post-operative Instructions Dear Patient and Family/Friends, Before you are discharged from the hospital, it is important to know what to expect when you get home after surgery. To that end, we have created this sheet of discharge instructions which covers many commonly asked questions. Make sure you go through this sheet in its entirety with your nurse before you are discharged. Please note that we will go over the specifics of your surgery and recovery when you return for your first post-operative visit. Sincerely, Dr. Bolanos Pain Expect to be in a fair amount of pain after surgery. Remember, our goal is not to eliminate your pain, but to make it tolerable. It is a good idea to stay ahead of your pain by taking the medications you were prescribed once you get home. Typically, the pain starts improving 3-7 days after surgery. You should start weaning off the narcotic pain medication (oxycodone, hydrocodone, hydromorphone, morphine) as soon as your pain improves. Please call our office if your pain is not adequately controlled. Ice Ice your operative site at least 5 times a day for 15-30 minutes at a time. Make sure you have a thin cloth between the ice or cooling unit and your skin to prevent hammer bite. This is especially important if you received a nerve block. Continue icing your operative site for the first 5-7 days after surgery, then as needed. Diet/Nausea/Vomiting Start by drinking clear liquids and eating crackers. If you can tolerate this, then you may resume your normal diet. If you feel nauseated or vomit, take Zofran/ondansetron (if prescribed). Please call our office if you have intractable nausea or vomiting, or, if after hours, you may go to the Emergency Room for help. Constipation Constipation is a common side effect of narcotic pain medication. If you have not had a bowel movement within 2 days after surgery, we recommend purchasing an over the counter laxative such as Milk of Magnesia, Dulcolax, or Miralax from a local pharmacy, and taking it as instructed. Call our clinic if any questions. Nerve block The anesthesia team sometimes places a nerve block to help with post-operative pain control. This results in significant numbness and inability to move the extremity. The nerve block usually wears off in 8-12 hours, but sometimes can last up to 24 hours. Please call our office if you are still unable to move your extremity after 24 hours, unless you received a pain pump to take home. Nerve blocks typically wear off quickly, so start taking pain medication as soon as you start feeling soreness near your surgical site. Weight bearing and Range of Motion. Do not bear any weight through your operative extremity immediately after surgery. If you had upper extremity surgery, do not lift anything with that arm. If you are in a knee brace, keep it locked in place until your follow-up. We will discuss your weight bearing, range of motion, and lifting restrictions in detail at your first post-operative appointment. Continuous Passive Motion (CPM) Machine If you were prescribed a CPM machine, it will start after your first post- operative appointment, at which time we will give you instructions on the range of motion settings and duration of treatment Physical therapy You will be given a prescription for physical therapy or occupational therapy at your first post-operative appointment. Typically, patients start therapy within 1 week of surgery Wound care and showering We will inspect your wound at your first post-operative visit, and may do a dressing change at that time. Most patients will be in a water-proof dressing that is removed 14 days after surgery. It is normal to see some dried blood on the dressing. Do not remove your dressing, paper strips or sutures yourself unless you are given permission. Showering is allowed the day after surgery. Do not scrub or remove any dressi ngs. The wound should not be submerged underwater (i.e. in a bathtub or pool) until 4 weeks after surgery CHARLY stockings If you were given white stockings, these are to be worn at all times except to shower (on both legs) for the first 2 weeks after surgery. Driving You may not drive while taking narcotic pain medication or while in a cast, splint, sling or brace. You, the patient, need to make the final determination about when you are safe to drive, however, the earliest you may consider driving after surgery is below: Hand/Wrist/Elbow Surgery: 3 days Shoulder Surgery: 2 weeks Hip,/Knee/Ankle Surgery: 4 weeks Fracture repair: 6 weeks Return to Work Your return to work depends on what surgery was done and what type of work you do. Please bring any paperwork your employer needs completed to your first post-operative visit. Also, bring a description of your job duties, as this helps us to understand what risks you may face at work. Travel Avoid long distance travel (greater than 1 hour) in airplanes and cars for the first 6 weeks after surgery. If you must travel, you need to have a Doppler ultrasound done before you travel to rule out a blood clot in your legs. Follow-up You should have a follow-up appointment already scheduled 1-2 days after surgery. If not, please contact our office to make this appointment before you leave the hospital. When to call the office It is normal to have swelling and bruising in the limb that was operated on. This will improve with time. It is also normal to have fevers for the first 2 days after surgery. Reasons you should call your doctor include: Uncontrolled pain; Nausea, vomiting, or constipation that does not improve with medication; Fevers over 101.5, chills, sweats; Drainage or bleeding from the wound; Foul odor; Spreading areas of redness; Any other concerns Pending Studies at Discharge: No Stand-Alone Forms: Anesthesia/Sed Adult Regional, Count Includes [facility] Medications and DC Order Prescriptions: Continued tamsulosin 0.4 mg Capsule 0.4 mg PO HS RF: 0 allopurinol 300 mg Tablet 300 mg PO QAM RF: 0 hydrochlorothiazide 25 mg Tablet 25 mg PO QAM RF: 0 cholecalciferol (vitamin D3) [Vitamin D3] 25 mcg (1,000 unit) Capsule 1,000 unit PO QAM RF: 0 duloxetine 60 mg Capsule,Delayed Release(Dr/Ec) 60 mg PO QAM RF: 0 lisinopril 10 mg tablet 15 mg PO QAM RF: 0 diclofenac sodium 75 mg tablet,delayed release (DR/EC) 75 mg PO BID PRN (Reason: arthritis) RF: 0 ascorbic acid (vitamin C) [Vitamin C] 500 mg Tablet Extended Release 500 mg PO QAM RF: 0 Men's Multivitamin 400-20-300 mcg Tablet 1 tab PO HS RF: 0 Discharge Orders: Discharge Order (Routine); Ordered 12/03/20 Ordered By: Harlan Mckee/Other Patient Handouts: DVT Post Op Prevention Admission Data Admit Date/Time: 12/03/20 15:22 Attending Provider: Cody Bolanos Admit Provider: Cody Bolanos Primary Care Provider: Mary Erazo Other Providers: [facility]
== END 2020-12-04 14:06 | disposition home health service (06) ==
LOC: ASU 05:56 → 3E 05:56
DX: M65.9 Synovitis and tenosynovitis, unspecified; Z79.82 Long term (current) use of aspirin; M16.12 Unilateral primary osteoarthritis, left hip; E66.9 Obesity, unspecified; I10 Essential (primary) hypertension; Z79.899 Other long term (current) drug therapy; M06.9 Rheumatoid arthritis, unspecified